=== PATIENT | male | born 1990 | race Caucasian/White ===

== ENCOUNTER 2017-02-01 19:44 | Inpatient (IN) | payer BC ==
[2017-02-01] MEDS ORDERED: Sodium Chloride 0.9% 1,000 ML IV SCH (20:45)
[2017-02-01] MEDS ORDERED: Sodium Chloride 0.9% 1,000 ML IV ONE ×2 (20:48→22:12)
--- NOTE | 2017-02-01 20:58 | PCM.HP ---
H&P History of Present Illness - General Date of Service: 02/01/17 Admit Problem/Dx: Sepsis with Hypotension and IVDU Source of Information: Patient, Provider, RN notes reviewed, Significant Other History Limitations: Reports: No limitations - History of Present Illness Initial Comments - Free Text/Narative: This is a 26 yo white male with past medical hx/o anxiety, depression, substance abuse who initially presented to [place] with complaints of abdominal pain associated with nausea, vomiting and headache. He also admits to having watery diarrhea that just started this am. Patient carries a hx/o chronic IVDU, today he and his girlfriend admit to injecting dilaudid from a cotton and saved it to use for a few days later. However he did not use a clean needle. According to him, he buys dilaudid pills from friends, either 2 or 4 mg for $10 each; crushed, saved it on a cotton ball and wet it later to get liquid out and then inject. He has been doing this for 2 years now. He usually injects at least 2 times a month. In [place], his initial work up shows a CBC remarkable for WBC of 2.9. His chemistry is significant for Cr 1.7, AST 249, and ALT 108. His initial vital signs were Temp 101.8, HR 170, RR 20, O2 sat 100 on RA, and BP 109/43 mmHg. Patient received one time dose of 1L NS bolus, Zofran 4mg IVP, Toradol 30 mg IVP , Zosyn 3.375 mg IV and Vancomycin 1 gram IV before he was transferred to [facility] for higher level of care. - Related Data Allergies/Adverse Reactions: Allergies Allergy/AdvReac Type Severity Reaction Status Date / Time No Known Allergies Allergy Verified 02/01/17 20:34 Past Medical History Psychiatric History: Reports: Addiction, Anxiety, Depression Social & Family History - Family History Family Medical History: Noncontributory - Tobacco Use Smoking Status *Q: Current Every Day Smoker Years of Tobacco use: 6 Packs/Tins Daily: 1 Used Tobacco, but Quit: No Second Hand Smoke Exposure: No - Caffeine Use Caffeine Use: Reports: Coffee, Energy drinks, Soda, Tea - Recreational Drug Use Recreational Drug Use: Yes Drug Use in Last 12 Months: Yes Recreational Drug Type: Reports: Other (see below) Other Recreational Drug Type: opiates Recreational Drug Use Frequency: Daily H&P Review of Systems - Review of Systems: Review Of Systems: See Below General: Reports: fever, malaise. Denies: chills, weakness, fatigue, decreased appetite HEENT: Reports: no symptoms, headaches Cardiovascular: Denies: chest pain, palpitations, dyspnea on exertion Gastrointestinal: Reports: Abdominal pain, Diarrhea, Nausea, Vomiting. Denies: Black stool, Bloody stool, Decreased appetite, Difficulty swallowing, Melena Genitourinary: Reports: no symptoms Musculoskeletal: Reports: neck pain, back pain, joint pain, muscle pain Skin: Denies: cyanosis, rash, erythema, lesions Psychiatric: Denies: confusion, depression, anxiety, agitation, cravings, hallucinations, suicidal ideation Neurological: Reports: Headache. Denies: Confusion, Dizziness, Numbness, Paresthesia, Seizure, Syncope, Tingling, Tremors, Trouble Speaking, Difficulty Walking, Weakness, Change in Speech, Gait Disturbance Hematologic/Lymphatic: Reports: no symptoms Immunologic: Reports: no symptoms Exam - Exam Exam: See Below - Vital Signs Weight: 73.21 kg - Exam General: alert, oriented, cooperative. No: mild distress HEENT: Conjunctiva clear, EACs clear, Hearing intact, Mucosa moist & pink, Nares patent, Normal nasal septum, Posterior pharynx clear, Pupils equal, Pupils reactive. No: EOMI Neck: supple, trachea midline, 2+ carotid pulse wo bruit, full range of motion Lungs: Clear to auscultation, Normal respiratory effort Cardiovascular: tachycardia. No: systolic murmur, diastolic murmur Abdomen: normal bowel sounds, soft, tenderness (mild). No: organomegaly, peritoneal signs, distention, guarding, rigidity, rebound (Male) Exam: Deferred Rectal (Males) Exam: Deferred Back Exam: normal inspection, full range of motion Extremities: normal inspection, normal pulses. No: clubbing, cyanosis, calf tenderness, edema Peripheral Pulses: 3+: posterior tibial (L), posterior tibial (R), dorsalis pedis (L), dorsalis pedis (R) Skin: warm, dry, intact, other (tattoos: chest, back of upper right arm, lateral aspect of lower leg and medial aspect of left foot). No: rash, petechia , ecchymosis, wound, incision Skin Alteration Location (drawings not to scale): 1 - one needle tract 2 - tattoo 3 - tattoo 4 - tattoo 5 - tattoo Neuro Extensive - Mental Status: oriented x3, normal cognition, memory intact Neuro Extensive - Motor, Sensory, Reflexes: CN II-XII intact, normal gait Psychiatric: alert, normal affect, normal mood. No: anxious, agitated, suicidal ideation, hallucinations, withdrawal symptoms - Patient Data Result Diagrams: 02/01/17 21:50 02/01/17 21:50 *Q Meaningful Use (ADM) - VTE *Q VTE Criteria *Q: - Stroke *Q Stroke Criteria *Q: - AMI *Q AMI Criteria *Q: Problem List Initiated/Reviewed/Updated: Yes Orders Last 24hrs: Active Orders 24 hr Category Date Time Status Regular Diet [DIET] Diet 02/01/17 Breakfast Active CULTURE MRSA SURVEY [RM] Routine Lab 02/01/17 20:40 Ordered Sodium Chloride 0.9% [Normal Saline] 1,000 ml Med 02/01/17 20:45 Active IV ASDIRECTED Sodium Chloride 0.9% [Normal Saline] 1,000 ml Med 02/01/17 20:48 Active IV ONETIME Medication Orders Sodium Chloride (Normal Saline) 1,000 mls @ 125 mls/hr IV ASDIRECTED EFRAÍN Sodium Chloride (Normal Saline) 1,000 mls @ 999 mls/hr IV ONETIME ONE Stop: 02/01/17 21:48 Assessment/Plan Comment:: Assessment/Plan: Acute: Sepsis with Profound Hypotension - Likely from infected needle with IVDU: fever, leukoctyosis, hypotension - Carries hx/o IDVU with heroin - WBC is now 11.75 and CRP is 2.8 - He was shooting up with his girlfriend today with "dilaudid" - Admits to re-using dirty needles - Received one dose of 1L NS, IV Vancomycin 1 gram and IV Zosyn 3.735 gram in Ron - LA now and LA in 3 hrs - Aggressive IV hydration at least 4L of NS , if no response will start a pressor - Will add Levaquin 750 mg IV Daily - Continue IV Vancomycin daily and IV Zosyn Q6 for pharmacy to renally dose Sinus Tachycardia - 2/2 profound hypotension - He is aggressive receiving intravenous fluids - Continue to monitor Lactic Acidosis - LA 4.7 - Continue aggressive hydration - Follow up level in 3 hrs IVDU with Dilaudid - Patient buys dilaudid pills either 2mg or 4 mg (for $10), crushed and soaked it on cotton balls to save it for later use and when ready to shoot, he then wet with water later to get liquid out via needle to inject - He admits a hx/o heroin IVD - He does this because he wants to "get high" - He does IVDU at least 2 times/month Acute on Chronic Substance Abuse - Hx/o Heroin IVDU - Hx/o Smoking Methamphetamine - Actively abusing dilaudid - Would help - Consult SAC Nausea and Vomiting - PRN anti-emesis - H2B BID Watery Diarrhea - Started today, has not had any episode - No recent travel outside the country - No unusual diet/drinks and no bad food - Last meal was a donut - Supportive care and continue to monitor Nicotine Dependence - Smokes 1ppd - Nicotine patch daily Chronic: Anxiety Depression Plan: Admit to ICU due to hemodynamic instability Sepsis protocol: UA, Blood Cx 2, LA, Inflammatory markers and Intravenous Antibiotics Monitor for withdrawal symptoms Supportive Care Aggressive Volume Resuscitative Measures SW/CM for d/c planning Additional orders as above
[2017-02-01] MEDS ORDERED: Acetaminophen 325 MG Tab PO PRN (21:50)
[2017-02-01] MEDS ORDERED: Docusate Sodium 100 MG Cap PO PRN (21:50)
[2017-02-01] MEDS ORDERED: Bisacodyl 5 MG Tab PO PRN (21:50)
[2017-02-01] MEDS ORDERED: Ondansetron 4 MG/2 ML SDV IV PRN (21:50)
[2017-02-01] MEDS ORDERED: Albuterol/Ipratropium 3.0-0.5 MG/3 ML Neb Soln NEB PRN (21:50)
[2017-02-01] MEDS ORDERED: Nicotine 21 MG/24 Hr Patch TRDERM ONE (21:58)
[2017-02-01] MEDS ORDERED: Levofloxacin/Dextrose 5%-Water 750 MG in Premix Bag 1 BAG IV SCH (22:00)
[2017-02-01] MEDS: Temazepam 15 MG Cap PO PRN (22:26)
[2017-02-01] MEDS ORDERED: Magnesium Sulfate/Water 2 GM in Premix Bag 1 BAG IV ONE (22:54)
[2017-02-01] MEDS ORDERED: hydrALAZINE 20 MG/ML SDV IVPUSH PRN (22:56)
[2017-02-01] MEDS ORDERED: Metoprolol Tartrate 5 MG/5 ML SDV IVPUSH PRN (22:56)
[2017-02-02] MEDS: Piperacillin/Tazobactam 4.5 GM in Sodium Chloride 0.9% 100 ML IV SCH ×5 (00:16→23:26)
[2017-02-02] MEDS ORDERED: Sodium Chloride 0.9% 1,000 ML IV ONE ×2 (01:00→01:04)
[2017-02-02] MEDS: LORazepam 2 MG/ML MDV IV PRN ×3 (01:09→18:11)
[2017-02-02] MEDS ORDERED: SUMAtriptan 50 MG Tab PO PRN (01:14)
[2017-02-02] MEDS: Meperidine PF 50 MG/ML Syringe IVPUSH PRN (02:31)
[2017-02-02] MEDS: Ibuprofen 600 MG Tab PO PRN (03:13)
[2017-02-02] MEDS: SUMAtriptan 50 MG Tab PO PRN ×2 (03:20→05:11)
[2017-02-02] MEDS ORDERED: Acetaminophen/Butalbital/Caffeine 325-50-40 MG Tab PO PRN (07:23)
[2017-02-02] MEDS ORDERED: diphenhydrAMINE 50 MG/ML SDV IVPUSH ONE ×3 (07:24→23:40)
[2017-02-02] MEDS: Famotidine 20 MG Tab PO SCH ×2 (08:11→20:32)
[2017-02-02] MEDS ORDERED: Enoxaparin 30 MG/0.3 ML Syringe SUBCUT SCH (09:00)
[2017-02-02] MEDS ORDERED: Vancomycin 1 GM, Vancomycin 500 MG in Sodium Chloride 0.9% 500 ML IV SCH (09:00)
[2017-02-02] MEDS: Sodium Chloride 0.9% 1,000 ML IV SCH ×4 (09:32→21:48)
[2017-02-02] MEDS ORDERED: Magnesium Sulfate/Water 2 GM in Premix Bag 1 BAG IV ONE (09:35)
[2017-02-02] MEDS ORDERED: Enoxaparin 30 MG/0.3 ML Syringe SUBCUT ONE (10:00)
[2017-02-02] MEDS: Saccharomyces Boulardii (Probiotic) 250 MG Cap PO SCH ×3 (10:13→20:33)
[2017-02-02] MEDS: Magnesium Sulfate/Water 2 GM in Premix Bag 1 BAG IV ONE ×2 (11:52→12:23)
[2017-02-02] MEDS ORDERED: QUEtiapine 25 MG Tab PO ONE (12:41)
[2017-02-02] MEDS ORDERED: Norepinephrine 4 MG in Dextrose 5% in Water 246 ML IV SCH ×2 (17:30)
--- NOTE | 2017-02-02 17:38 | PCM.PN ---
- General Info Date of Service: 02/02/17 Admission Dx/Problem (Free Text): Sepsis with Hypotension and IVDU Subjective Update: Follow Up Functional Status: Reports: pain controlled, tolerating diet, urinating, new symptoms (anxious) - Review of Systems General: Denies: Fever, Chills HEENT: Reports: no symptoms Pulmonary: Denies: shortness of breath Cardiovascular: Denies: Chest Pain, Palpitations, Dyspnea on Exertion Gastrointestinal: Denies: Abdominal pain, Constipation, Diarrhea, Nausea, Vomiting Genitourinary: Reports: no symptoms Musculoskeletal: Reports: no symptoms Skin: Denies: cyanosis, jaundice, mottled, pallor, diaphoresis, pruritis, rash Neurological: Denies: Confusion, Seizure, Syncope, Weakness Psychiatric: Reports: anxiety. Denies: confusion, depression, mood lability, cravings, hallucinations, suicidal ideation, homicidal ideation Systems Review Comment:: No overnight or acute issues. He looks stable. His BP is holding up real well. His WBC went up to 20K from 11K. He remains afebrile. - Patient Data Vitals - most recent: Last Vital Signs Temp 37.1 C 02/02/17 11:59 Pulse 110 H 02/02/17 17:17 Resp 22 H 02/02/17 17:17 BP 92/50 L 02/02/17 17:17 Pulse Ox 96 02/02/17 17:17 Weight - most recent: 73.21 kg I&O - last 24 hours: Intake & Output 02/02/17 02/02/17 02/02/17 06:59 14:59 22:59 Intake Total 7300 3130 Output Total 3450 2550 Balance 3850 580 Lab Results last 24 hrs: Laboratory Results - last 24 hr 02/01/17 02/01/17 02/01/17 Range/Units 21:50 21:50 21:50 WBC 11.75 H (4.23-9.07) K/mm3 RBC 4.47 L (4.63-6.08) M/mm3 Hgb 13.0 L (13.7-17.5) gm/L Hct 38.8 L (40.1-51.0) % MCV 86.8 (79.0-92.2) fl MCH 29.1 (25.7-32.2) pg MCHC 33.5 (32.2-35.5) g/dl RDW Std Deviation 39.5 (35.1-43.9) fL Plt Count 150 L (163-337) K/mm3 MPV 10.2 (9.4-12.3) fl Neut % (Auto) 96.8 H (34.0-67.9) % Lymph % (Auto) 1.4 L (21.8-53.1) % [place] % (Auto) 0.3 L (5.3-12.2) % Eos % (Auto) 0.2 L (0.8-7.0) Baso % (Auto) 0.2 (0.1-1.2) % Neut # (Auto) 11.39 H (1.78-5.38) K/mm3 Lymph # (Auto) 0.16 L (1.32-3.57) K/mm3 [place] # (Auto) 0.03 L (0.30-0.82) K/mm3 Eos # (Auto) 0.02 L (0.04-0.54) K/mm3 Baso # (Auto) 0.02 (0.01-0.08) K/mm3 Manual Slide Review Abnormal smear ESR 6 (0-15) mm/hr Sodium 139 (136-145) mEq/L Potassium 3.8 (3.5-5.1) mEq/L Chloride 104 (98-107) mEq/L Carbon Dioxide 23 (21-32) mEq/L Anion Gap 15.8 H (5-15) BUN 18 (7-18) mg/dL Creatinine 1.9 H (0.7-1.3) mg/dL Est Cr Clr Drug Dosing 61.54 mL/min Estimated GFR (MDRD) 43 (>60) mL/min BUN/Creatinine Ratio 9.5 L (14-18) Glucose 118 H (74-106) mg/dL Lactic Acid (0.4-2.0) mmol/L Calcium 7.9 L (8.5-10.1) mg/dL Magnesium 1.2 L (1.8-2.4) mg/dl C-Reactive Protein 2.8 H* (<1.0) mg/dL Urine Color (Yellow) Urine Appearance (Clear) Urine pH (5.0-8.0) Ur Specific [place] (1.005-1.030) Urine Protein (Negative) Urine Glucose (UA) (Negative) Urine Ketones (Negative) Urine Occult Blood (Negative) Urine Nitrite (Negative) Urine Bilirubin (Negative) Urine Urobilinogen (0.2-1.0) Ur Leukocyte Esterase (Negative) Urine RBC (0-5) /hpf Urine WBC (0-5) /hpf Ur Epithelial Cells (0-5) /hpf Amorphous Sediment (NOT SEEN) /hpf Urine Bacteria (FEW) /hpf Urine Mucus (FEW) /hpf Urine Opiates Screen (NEGATIVE) Ur Buprenorphine Scrn (NEGATIVE) Ur Oxycodone Screen (NEGATIVE) Urine Methadone Screen (NEGATIVE) Ur Propoxyphene Screen (NEGATIVE) Ur Barbiturates Screen (NEGATIVE) Ur Tricyclics Screen (NEGATIVE) Ur Phencyclidine Scrn (NEGATIVE) Ur Amphetamine Screen (NEGATIVE) U Methamphetamines Scrn (NEGATIVE) U Benzodiazepines Scrn (NEGATIVE) U Cocaine Metab Screen (NEGATIVE) U Marijuana (THC) Screen (NEGATIVE) MRSA (PCR) 02/01/17 02/01/17 02/01/17 Range/Units 21:50 23:00 23:00 WBC (4.23-9.07) K/mm3 RBC (4.63-6.08) M/mm3 Hgb (13.7-17.5) gm/L Hct (40.1-51.0) % MCV (79.0-92.2) fl MCH (25.7-32.2) pg MCHC (32.2-35.5) g/dl RDW Std Deviation (35.1-43.9) fL Plt Count (163-337) K/mm3 MPV (9.4-12.3) fl Neut % (Auto) (34.0-67.9) % Lymph % (Auto) (21.8-53.1) % [place] % (Auto) (5.3-12.2) % Eos % (Auto) (0.8-7.0) Baso % (Auto) (0.1-1.2) % Neut # (Auto) (1.78-5.38) K/mm3 Lymph # (Auto) (1.32-3.57) K/mm3 [place] # (Auto) (0.30-0.82) K/mm3 Eos # (Auto) (0.04-0.54) K/mm3 Baso # (Auto) (0.01-0.08) K/mm3 Manual Slide Review ESR (0-15) mm/hr Sodium (136-145) mEq/L Potassium (3.5-5.1) mEq/L Chloride (98-107) mEq/L Carbon Dioxide (21-32) mEq/L Anion Gap (5-15) BUN (7-18) mg/dL Creatinine (0.7-1.3) mg/dL Est Cr Clr Drug Dosing mL/min Estimated GFR (MDRD) (>60) mL/min BUN/Creatinine Ratio (14-18) Glucose (74-106) mg/dL Lactic Acid 4.7 H (0.4-2.0) mmol/L Calcium (8.5-10.1) mg/dL Magnesium (1.8-2.4) mg/dl C-Reactive Protein (<1.0) mg/dL Urine Color Yellow (Yellow) Urine Appearance Clear (Clear) Urine pH 5.5 (5.0-8.0) Ur Specific [place] 1.010 (1.005-1.030) Urine Protein 1+ H (Negative) Urine Glucose (UA) Negative (Negative) Urine Ketones Negative (Negative) Urine Occult Blood 2+ H (Negative) Urine Nitrite Negative (Negative) Urine Bilirubin Negative (Negative) Urine Urobilinogen 0.2 (0.2-1.0) Ur Leukocyte Esterase Negative (Negative) Urine RBC 20-30 H (0-5) /hpf Urine WBC 0-5 (0-5) /hpf Ur Epithelial Cells 0-5 (0-5) /hpf Amorphous Sediment Few H (NOT SEEN) /hpf Urine Bacteria Few (FEW) /hpf Urine Mucus Few (FEW) /hpf Urine Opiates Screen Presumptive positive H (NEGATIVE) Ur Buprenorphine Scrn Negative (NEGATIVE) Ur Oxycodone Screen Negative (NEGATIVE) Urine Methadone Screen Negative (NEGATIVE) Ur Propoxyphene Screen Negative (NEGATIVE) Ur Barbiturates Screen Negative (NEGATIVE) Ur Tricyclics Screen Presumptive positive H (NEGATIVE) Ur Phencyclidine Scrn Negative (NEGATIVE) Ur Amphetamine Screen Presumptive positive H (NEGATIVE) U Methamphetamines Scrn Negative (NEGATIVE) U Benzodiazepines Scrn Negative (NEGATIVE) U Cocaine Metab Screen Negative (NEGATIVE) U Marijuana (THC) Screen Presumptive positive H (NEGATIVE) MRSA (PCR) 02/02/17 02/02/17 02/02/17 Range/Units 01:00 04:21 04:21 WBC 20.34 H (4.23-9.07) K/mm3 RBC 4.34 L (4.63-6.08) M/mm3 Hgb 12.7 L (13.7-17.5) gm/L Hct 37.5 L (40.1-51.0) % MCV 86.4 (79.0-92.2) fl MCH 29.3 (25.7-32.2) pg MCHC 33.9 (32.2-35.5) g/dl RDW Std Deviation 39.9 (35.1-43.9) fL Plt Count 147 L (163-337) K/mm3 MPV 10.2 (9.4-12.3) fl Neut % (Auto) 94.5 H (34.0-67.9) % Lymph % (Auto) 1.2 L (21.8-53.1) % [place] % (Auto) 2.7 L (5.3-12.2) % Eos % (Auto) 0.1 L (0.8-7.0) Baso % (Auto) 0.1 (0.1-1.2) % Neut # (Auto) 19.21 H (1.78-5.38) K/mm3 Lymph # (Auto) 0.25 L (1.32-3.57) K/mm3 [place] # (Auto) 0.55 (0.30-0.82) K/mm3 Eos # (Auto) 0.02 L (0.04-0.54) K/mm3 Baso # (Auto) 0.02 (0.01-0.08) K/mm3 Manual Slide Review Abnormal smear ESR (0-15) mm/hr Sodium 144 (136-145) mEq/L Potassium 4.2 (3.5-5.1) mEq/L Chloride 109 H (98-107) mEq/L Carbon Dioxide 24 (21-32) mEq/L Anion Gap 15.2 H (5-15) BUN 20 H (7-18) mg/dL Creatinine 1.9 H (0.7-1.3) mg/dL Est Cr Clr Drug Dosing 61.54 mL/min Estimated GFR (MDRD) 43 (>60) mL/min BUN/Creatinine Ratio 10.5 L (14-18) Glucose 98 (74-106) mg/dL Lactic Acid 5.1 H (0.4-2.0) mmol/L Calcium 7.9 L (8.5-10.1) mg/dL Magnesium 1.5 L (1.8-2.4) mg/dl C-Reactive Protein 7.5 H* (<1.0) mg/dL Urine Color (Yellow) Urine Appearance (Clear) Urine pH (5.0-8.0) Ur Specific [place] (1.005-1.030) Urine Protein (Negative) Urine Glucose (UA) (Negative) Urine Ketones (Negative) Urine Occult Blood (Negative) Urine Nitrite (Negative) Urine Bilirubin (Negative) Urine Urobilinogen (0.2-1.0) Ur Leukocyte Esterase (Negative) Urine RBC (0-5) /hpf Urine WBC (0-5) /hpf Ur Epithelial Cells (0-5) /hpf Amorphous Sediment (NOT SEEN) /hpf Urine Bacteria (FEW) /hpf Urine Mucus (FEW) /hpf Urine Opiates Screen (NEGATIVE) Ur Buprenorphine Scrn (NEGATIVE) Ur Oxycodone Screen (NEGATIVE) Urine Methadone Screen (NEGATIVE) Ur Propoxyphene Screen (NEGATIVE) Ur Barbiturates Screen (NEGATIVE) Ur Tricyclics Screen (NEGATIVE) Ur Phencyclidine Scrn (NEGATIVE) Ur Amphetamine Screen (NEGATIVE) U Methamphetamines Scrn (NEGATIVE) U Benzodiazepines Scrn (NEGATIVE) U Cocaine Metab Screen (NEGATIVE) U Marijuana (THC) Screen (NEGATIVE) MRSA (PCR) 02/02/17 02/02/17 02/02/17 Range/Units 04:21 10:30 14:53 WBC (4.23-9.07) K/mm3 RBC (4.63-6.08) M/mm3 Hgb (13.7-17.5) gm/L Hct (40.1-51.0) % MCV (79.0-92.2) fl MCH (25.7-32.2) pg MCHC (32.2-35.5) g/dl RDW Std Deviation (35.1-43.9) fL Plt Count (163-337) K/mm3 MPV (9.4-12.3) fl Neut % (Auto) (34.0-67.9) % Lymph % (Auto) (21.8-53.1) % [place] % (Auto) (5.3-12.2) % Eos % (Auto) (0.8-7.0) Baso % (Auto) (0.1-1.2) % Neut # (Auto) (1.78-5.38) K/mm3 Lymph # (Auto) (1.32-3.57) K/mm3 [place] # (Auto) (0.30-0.82) K/mm3 Eos # (Auto) (0.04-0.54) K/mm3 Baso # (Auto) (0.01-0.08) K/mm3 Manual Slide Review ESR (0-15) mm/hr Sodium (136-145) mEq/L Potassium (3.5-5.1) mEq/L Chloride (98-107) mEq/L Carbon Dioxide (21-32) mEq/L Anion Gap (5-15) BUN (7-18) mg/dL Creatinine (0.7-1.3) mg/dL Est Cr Clr Drug Dosing mL/min Estimated GFR (MDRD) (>60) mL/min BUN/Creatinine Ratio (14-18) Glucose (74-106) mg/dL Lactic Acid 4.4 H 2.0 (0.4-2.0) mmol/L Calcium (8.5-10.1) mg/dL Magnesium (1.8-2.4) mg/dl C-Reactive Protein (<1.0) mg/dL Urine Color (Yellow) Urine Appearance (Clear) Urine pH (5.0-8.0) Ur Specific [place] (1.005-1.030) Urine Protein (Negative) Urine Glucose (UA) (Negative) Urine Ketones (Negative) Urine Occult Blood (Negative) Urine Nitrite (Negative) Urine Bilirubin (Negative) Urine Urobilinogen (0.2-1.0) Ur Leukocyte Esterase (Negative) Urine RBC (0-5) /hpf Urine WBC (0-5) /hpf Ur Epithelial Cells (0-5) /hpf Amorphous Sediment (NOT SEEN) /hpf Urine Bacteria (FEW) /hpf Urine Mucus (FEW) /hpf Urine Opiates Screen (NEGATIVE) Ur Buprenorphine Scrn (NEGATIVE) Ur Oxycodone Screen (NEGATIVE) Urine Methadone Screen (NEGATIVE) Ur Propoxyphene Screen (NEGATIVE) Ur Barbiturates Screen (NEGATIVE) Ur Tricyclics Screen (NEGATIVE) Ur Phencyclidine Scrn (NEGATIVE) Ur Amphetamine Screen (NEGATIVE) U Methamphetamines Scrn (NEGATIVE) U Benzodiazepines Scrn (NEGATIVE) U Cocaine Metab Screen (NEGATIVE) U Marijuana (THC) Screen (NEGATIVE) MRSA (PCR) Negative Med Orders - Current: Current Medications Acetaminophen (Tylenol) 650 mg PO Q4H PRN PRN Reason: Pain (Mild 1-3)/fever Acetaminophen/Butalbital/Caffeine (Fioricet 325-50-40 Mg) 1 tab PO Q4H PRN PRN Reason: Headache Last Admin: 02/02/17 16:36 Dose: 1 tab Albuterol/Ipratropium (Duoneb 3.0-0.5 Mg/3 Ml) 3 ml NEB Q4H PRN PRN Reason: Shortness Of Breath/wheezing Bisacodyl (Dulcolax) 5 mg PO DAILY PRN PRN Reason: Constipation Docusate Sodium (Colace) 100 mg PO BID PRN PRN Reason: Constipation Enoxaparin Sodium (Lovenox) 40 mg SUBCUT DAILY [facility] Famotidine (Pepcid) 20 mg PO BID [facility] Last Admin: 02/02/17 08:11 Dose: 20 mg Hydralazine HCl (Apresoline) 20 mg IVPUSH Q4H PRN PRN Reason: Hypertension Piperacillin Sod/Tazobactam (Sod 4.5 gm/ Sodium Chloride) 100 mls @ 33.333 mls/ hr IV Q6H [facility] Last Admin: 02/02/17 17:31 Dose: 33.333 mls/hr Vancomycin HCl 1 gm/ Sodium (Chloride) 250 mls @ 250 mls/hr IV Q12H [facility] Last Admin: 02/02/17 11:12 Dose: 250 mls/hr Sodium Chloride (Normal Saline) 1,000 mls @ 250 mls/hr IV ASDIRECTED [facility] Last Admin: 02/02/17 17:32 Dose: 125 mls/hr Norepinephrine Bitartrate 4 mg (/ Dextrose/Water) 250 mls @ 7.5 mls/hr IV TITRATE [facility]RA[facility]N; 2 MCG/MIN PRN Reason: Protocol Ibuprofen (Motrin) 600 mg PO Q6H PRN PRN Reason: Pain Last Admin: 02/02/17 03:13 Dose: 600 mg Lorazepam (Ativan) 1 mg IV Q6H PRN PRN Reason: Anxiety Last Admin: 02/02/17 12:10 Dose: 1 mg Magnesium Sulfate (Pharmacy To Dose - Magnesium Replacement) 1 dose .XX ASDIRECTED PRN PRN Reason: rx to dose Meperidine HCl (Demerol) 50 mg IVPUSH Q6H PRN PRN Reason: Pain Last Admin: 02/02/17 02:31 Dose: 50 mg Metoprolol Tartrate (Lopressor) 5 mg IVPUSH Q4H PRN PRN Reason: Tachycardia Last Admin: 02/02/17 03:12 Dose: 5 mg Nicotine (Habitrol) 21 mg TRDERM DAILY [facility] Ondansetron HCl (Zofran) 4 mg IV Q6H PRN PRN Reason: Nausea/Vomiting Potassium Chloride (Pharmacy To Dose - Potassium Replacement) 1 dose .XX ASDIRECTED PRN PRN Reason: rx to dose Quetiapine Fumarate (Seroquel) 25 mg PO BID [facility] Saccharomyces Boulardii (Florastor) 250 mg PO TID [facility] Last Admin: 02/02/17 16:07 Dose: 250 mg Senna/Docusate Sodium (Senna Plus) 1 tab PO BID PRN PRN Reason: Constipation Temazepam (Restoril) 30 mg PO BEDTIME PRN PRN Reason: Sleep Last Admin: 02/01/17 22:26 Dose: 30 mg Vancomycin HCl (Pharmacy To Dose - Vancomycin) 1 dose .XX ASDIRECTED PRN PRN Reason: rx to dose Discontinued Medications Diphenhydramine HCl (Benadryl) 50 mg IVPUSH ONETIME ONE Stop: 02/02/17 07:25 Last Admin: 02/02/17 08:10 Dose: 50 mg Enoxaparin Sodium (Lovenox) 30 mg SUBCUT DAILY [facility] Last Admin: 02/02/17 08:10 Dose: 30 mg Enoxaparin Sodium (Lovenox) 10 mg SUBCUT ONETIME ONE Stop: 02/02/17 10:01 Last Admin: 02/02/17 09:51 Dose: 10 mg Sodium Chloride (Normal Saline) 1,000 mls @ 125 mls/hr IV ASDIRECTED [facility] Last Admin: 02/02/17 02:32 Dose: 125 mls/hr Sodium Chloride (Normal Saline) 1,000 mls @ 999 mls/hr IV ONETIME ONE Stop: 02/01/17 21:48 Last Admin: 02/01/17 21:06 Dose: 999 mls/hr Levofloxacin/Dextrose 750 mg/ (Premix) 150 mls @ 100 mls/hr IV Q24H [facility] Last Admin: 02/01/17 22:27 Dose: 100 mls/hr Vancomycin HCl 1 gm/Vancomycin HCl 500 mg/ Sodium Chloride 500 mls @ 333 mls/ hr IV Q24H [facility] Sodium Chloride (Normal Saline) 1,000 mls @ 999 mls/hr IV ONETIME ONE Stop: 02/01/17 23:12 Last Admin: 02/01/17 22:28 Dose: 999 mls/hr Magnesium Sulfate 2 gm/ Premix 50 mls @ 25 mls/hr IV ONETIME ONE Stop: 02/02/17 00:53 Last Admin: 02/02/17 00:12 Dose: 25 mls/hr Sodium Chloride (Normal Saline) 1,000 mls @ 999 mls/hr IV ONETIME ONE Stop: 02/02/17 02:00 Last Admin: 02/02/17 00:00 Dose: 999 mls/hr Sodium Chloride (Normal Saline) 1,000 mls @ 999 mls/hr IV ONETIME ONE Stop: 02/02/17 02:04 Last Admin: 02/02/17 01:13 Dose: 999 mls/hr Magnesium Sulfate 2 gm/ Premix 50 mls @ 25 mls/hr IV ONETIME ONE Stop: 02/02/17 11:34 Last Admin: 02/02/17 10:14 Dose: 25 mls/hr Magnesium Sulfate 2 gm/ Premix 50 mls @ 25 mls/hr IV ONETIME ONE Stop: 02/02/17 13:59 Last Admin: 02/02/17 12:23 Dose: Not Given Nicotine (Habitrol) 21 mg TRDERM ONETIME ONE Stop: 02/01/17 21:59 Last Admin: 02/01/17 22:25 Dose: 21 mg Quetiapine Fumarate (Seroquel) 25 mg PO ONETIME ONE Stop: 02/02/17 12:42 Last Admin: 02/02/17 12:55 Dose: 25 mg Sumatriptan Succinate (Imitrex) 50 mg PO Q4HR PRN PRN Reason: Headache Last Admin: 02/02/17 01:20 Dose: 50 mg Sumatriptan Succinate (Imitrex) 50 mg PO Q2H PRN PRN Reason: Headache Last Admin: 02/02/17 05:11 Dose: 50 mg - Exam General: alert, oriented, cooperative, no acute distress HEENT: Pupils equal, Pupils reactive, EOMI, Mucous membr. moist/pink Neck: supple, trachea midline, no JVD, no thyromegaly Lungs: Clear to auscultation, Normal respiratory effort Cardiovascular: Tachycardia Abdomen: bowel sounds present, soft, no tenderness, no distension (Male) Exam: Deferred Back Exam: normal inspection, full range of motion Extremities: no edema, normal pulses, no tenderness/swelling, no clubbing, no cyanosis, no calf tenderness Peripheral Pulses: 3+: posterior tibial (L), posterior tibial (R), dorsalis pedis (L), dorsalis pedis (R) Skin: warm, dry, intact Neurological: no new focal deficit Psy/Mental Status: alert, normal affect, anxious. No: suicidal ideation, homicidal ideation, hallucinations - Problem List Review Problem List Initiated/Reviewed/Updated: Yes - My Orders Last 24 Hours: My Active Orders 02/01/17 21:30 Blood Culture x2 Reflex Set [OM.PC] Stat 02/01/17 21:50 Patient Status [ADT] Routine Height and Weight [RC] 04 Up ad [place] [RC] ASDIRECTED VTE/DVT Education [RC] PER UNIT ROUTINE Vital Signs [RC] Q4HR CULTURE BLOOD [BC] Stat Acetaminophen [Tylenol] 650 mg PO Q4H PRN Albuterol/Ipratropium [DuoNeb 3.0-0.5 MG/3 ML] 3 ml NEB Q4H PRN Bisacodyl [Dulcolax] 5 mg PO DAILY PRN Docusate Sodium [Colace] 100 mg PO BID PRN Docusate Sodium/Sennosides [Senna Plus] 1 tab PO BID PRN LORazepam [Ativan] 1 mg IV Q6H PRN Ondansetron [Zofran] 4 mg IV Q6H PRN Temazepam [Restoril] 30 mg PO BEDTIME PRN Resuscitation Status Routine 02/01/17 21:51 Cardiac Monitoring [RC] CONTINUOUS Intake and Output [RC] 06,14,22 02/01/17 21:52 RT Aerosol Therapy [RC] ASDIRECTED 02/01/17 21:53 Consult to Case Management [CONS] Routine Consult to User Support Analyst [CONS] Routine Consult to Spiritual Care [CONS] Routine 02/01/17 22:00 Magnesium Rep Pharmacy to Dose [Pharmacy to Dose - Magnesium Replacement] 1 dose .XX ASDIRECTED PRN Potassium Rep Pharmacy to Dose [Pharmacy to Dose - Potassium Replacement] 1 dose .XX ASDIRECTED PRN Vancomycin Pharmacy to Dose [Pharmacy to Dose - Vancomycin] 1 dose .XX ASDIRECTED PRN 02/01/17 22:03 Consult for Substance Abuse [CONS] Routine CULTURE BLOOD [BC] Stat 02/01/17 22:56 Metoprolol Tartrate [Lopressor] 5 mg IVPUSH Q4H PRN hydrALAZINE [Apresoline] 20 mg IVPUSH Q4H PRN 02/01/17 23:00 CULTURE URINE [RM] Routine Meperidine [Demerol] 50 mg IVPUSH Q6H PRN Vancomycin [Vancocin] 1 gm Sodium Chloride 0.9% [Normal Saline] 250 ml IV Q12H 02/01/17 23:59 Piperacillin/Tazobactam [Zosyn] 4.5 gm Sodium Chloride 0.9% [Normal Saline] 100 ml IV Q6H 02/02/17 02:27 Ibuprofen [Motrin] 600 mg PO Q6H PRN 02/02/17 07:23 Acetaminophen/Butalbital/Caff [Fioricet 325-50-40 MG] 1 tab PO Q4H PRN 02/02/17 08:00 Sodium Chloride 0.9% [Normal Saline] 1,000 ml IV ASDIRECTED 02/02/17 09:00 Famotidine [Pepcid] 20 mg PO BID Saccharomyces Boulardii [Florastor] 250 mg PO TID 02/02/17 09:03 AMPHET/METH EXT CONF (GCMS) Routine CARBOXY-THC BY GC/MS Routine OPIATES 9 DRUG CONF LC-MS/MS Routine 02/02/17 17:30 Norepinephrine [Levophed] 4 mg Dextrose 5% in Water 246 ml IV TITRATE 02/02/17 21:00 Nicotine [Habitrol] 21 mg TRDERM DAILY QUEtiapine [SEROquel] 25 mg PO BID 02/03/17 05:11 BASIC METABOLIC PANEL,BMP [CHEM] AM C-REACTIVE PROTEIN [CHEM] AM CBC WITH AUTO DIFF [HEME] AM MAGNESIUM [CHEM] AM 02/03/17 09:00 Enoxaparin [Lovenox] 40 mg SUBCUT DAILY 02/04/17 05:11 BASIC METABOLIC PANEL,BMP [CHEM] AM C-REACTIVE PROTEIN [CHEM] AM CBC WITH AUTO DIFF [HEME] AM MAGNESIUM [CHEM] AM 02/05/17 05:11 BASIC METABOLIC PANEL,BMP [CHEM] AM C-REACTIVE PROTEIN [CHEM] AM CBC WITH AUTO DIFF [HEME] AM MAGNESIUM [CHEM] AM 02/06/17 05:11 BASIC METABOLIC PANEL,BMP [CHEM] AM C-REACTIVE PROTEIN [CHEM] AM CBC WITH AUTO DIFF [HEME] AM MAGNESIUM [CHEM] AM 02/07/17 05:11 BASIC METABOLIC PANEL,BMP [CHEM] AM C-REACTIVE PROTEIN [CHEM] AM CBC WITH AUTO DIFF [HEME] AM MAGNESIUM [CHEM] AM - Plan Plan:: Assessment/Plan: Acute: Sepsis with Profound Hypotension - Likely from infected needle with IVDU: fever, leukoctyosis, hypotension - Carries hx/o IDVU with heroin - WBC is now 20.34 (11.75) and CRP is 7.5 (2.8) - He was shooting up with his girlfriend today with "dilaudid" - Admits to re-using dirty needles - Received one dose of 1L NS, IV Vancomycin 1 gram and IV Zosyn 3.735 gram in [place] - LA now is 4.4, repeat level later - Continue aggressive IV hydration, increase rate to 250 cc/hr - D/c Levaquin 750 mg IV Daily - Continue IV Vancomycin daily and IV Zosyn Q6 for pharmacy to renally dose Mild Sinus Tachycardia - 2/2 profound hypotension and Sepsis - Continue aggressive hydration - Continue to monitor Lactic Acidosis - LA 4.7 ---> 4.4 - Continue aggressive hydration - Follow up level in the afternoon IVDU with Dilaudid - Patient buys dilaudid pills either 2mg or 4 mg (for $10), crushed and soaked it on cotton balls to save it for later use and when ready to shoot, he then wet with water later to get liquid out via needle to inject - He admits a hx/o heroin IVD - He does this because he wants to "get high" - He does IVDU at least 2 times/month Acute on Chronic Substance Abuse - Hx/o Heroin IVDU - Hx/o Smoking Methamphetamine - Actively abusing dilaudid - Would like some help to get better - He attended chemical rehab in the past in [place]" per mother - Consult SAC Nicotine Dependence - Smokes 1ppd - Nicotine patch daily Anxiety and Depression - He was asking more Ativan - Carries a significant hx/o Anxiety and Depression according to his mother - Will consult Dr. Hernandez Resolved: S/p Nausea and Vomiting - PRN anti-emesis - H2B BID S/p Watery Diarrhea - Started today, has not had any episode - No recent travel outside the country - No unusual diet/drinks and no bad food - Last meal was a donut - Supportive care and continue to monitor Plan: Continue to monitor for hemodynamic instability UA-negative and Blood Cx 2-pending Monitor for withdrawal symptoms Supportive Care Aggressive Volume Resuscitative Measures SW/CM for d/c planning SAC/Tele-Psych Consult Additional orders as above Spoke to his 3 siblings earlier today. Also with his mother later today, provided her with pertinent information with patient's permission.
--- NOTE | 2017-02-02 17:38 | PCM.SN ---
- Free Text/Narrative Note: Patient's pressure dropped lower requiring pressor support. Will start levophed titrate to keep MAP at or higher than 65. Met with her siblings today near bedside.
[2017-02-02] MEDS: QUEtiapine 25 MG Tab PO SCH (20:32)
[2017-02-02] MEDS: Temazepam 15 MG Cap PO PRN (20:37)
[2017-02-02] MEDS: Nicotine 21 MG/24 Hr Patch TRDERM SCH (20:39)
[2017-02-02] MEDS ORDERED: QUEtiapine 25 MG Tab PO SCH (21:00)
[2017-02-02] MEDS: LORazepam 2 MG/ML MDV IVPUSH PRN (22:48)
[2017-02-03] MEDS: Piperacillin/Tazobactam 4.5 GM in Sodium Chloride 0.9% 100 ML IV SCH ×3 (05:25→18:01)
[2017-02-03] MEDS: Sodium Chloride 0.9% 1,000 ML IV SCH ×3 (05:39→21:01)
[2017-02-03] MEDS: Enoxaparin 40 MG/0.4 ML Syringe SUBCUT SCH (08:55)
[2017-02-03] MEDS: Famotidine 20 MG Tab PO SCH ×2 (08:55→21:02)
[2017-02-03] MEDS: QUEtiapine 25 MG Tab PO SCH ×2 (08:55→21:03)
[2017-02-03] MEDS: Nicotine 21 MG/24 Hr Patch TRDERM SCH (08:56)
[2017-02-03] MEDS: Saccharomyces Boulardii (Probiotic) 250 MG Cap PO SCH ×2 (08:56→21:02)
[2017-02-03] MEDS: Meperidine PF 50 MG/ML Syringe IVPUSH PRN (09:08)
[2017-02-03] MEDS: LORazepam 2 MG/ML MDV IVPUSH PRN (09:10)
--- NOTE | 2017-02-03 09:31 | PCM.PN ---
- General Info Date of Service: 02/03/17 Admission Dx/Problem (Free Text): Sepsis with Hypotension and IVDU Subjective Update: Follow Up Functional Status: Reports: pain controlled, tolerating diet, ambulating, urinating. Denies: new symptoms - Review of Systems General: Denies: Fever, Weakness, Fatigue, Malaise, Chills HEENT: Reports: no symptoms Pulmonary: Denies: shortness of breath, pleuritic chest pain, cough, sputum Cardiovascular: Denies: Chest Pain, Palpitations, Dyspnea on Exertion Gastrointestinal: Denies: Abdominal pain, Nausea, Vomiting Genitourinary: Reports: no symptoms Musculoskeletal: Reports: no symptoms Skin: Denies: cyanosis, mottled, pallor, diaphoresis, rash Neurological: Denies: Confusion, Dizziness, Headache, Seizure, Syncope, Difficulty Walking, Weakness Psychiatric: Reports: anxiety. Denies: confusion, depression, agitation, cravings, hallucinations, suicidal ideation, homicidal ideation Systems Review Comment:: No overnight or acute issues. He fells much better with Seroquel. He has no acute issues. He remains afebrile but with increased WBC to 30K. CRP is up as well from 7.5 to 11. - Patient Data Vitals - most recent: Last Vital Signs Temp 36.7 C 02/03/17 04:00 Pulse 103 H 02/02/17 22:00 Resp 24 H 02/03/17 04:00 BP 122/66 02/03/17 04:00 Pulse Ox 96 02/03/17 04:00 Weight - most recent: 74.298 kg I&O - last 24 hours: Intake & Output 02/02/17 02/03/17 02/03/17 22:59 06:59 14:59 Intake Total 200 3752 Output Total 1700 Balance 200 2052 Lab Results last 24 hrs: Laboratory Results - last 24 hr 02/02/17 02/02/17 02/03/17 Range/Units 10:30 14:53 05:25 WBC 30.03 H (4.23-9.07) K/mm3 RBC 4.21 L (4.63-6.08) M/mm3 Hgb 12.5 L (13.7-17.5) gm/L Hct 36.3 L (40.1-51.0) % MCV 86.2 (79.0-92.2) fl MCH 29.7 (25.7-32.2) pg MCHC 34.4 (32.2-35.5) g/dl RDW Std Deviation 41.3 (35.1-43.9) fL Plt Count 144 L (163-337) K/mm3 MPV 11.2 (9.4-12.3) fl Neut % (Auto) 79.1 H (34.0-67.9) % Lymph % (Auto) 7.7 L (21.8-53.1) % Redwood % (Auto) 5.2 L (5.3-12.2) % Eos % (Auto) 0.2 L (0.8-7.0) Baso % (Auto) 0.2 (0.1-1.2) % Neut # (Auto) 23.76 H (1.78-5.38) K/mm3 Lymph # (Auto) 2.31 (1.32-3.57) K/mm3 Redwood # (Auto) 1.57 H (0.30-0.82) K/mm3 Eos # (Auto) 0.06 (0.04-0.54) K/mm3 Baso # (Auto) 0.06 (0.01-0.08) K/mm3 Manual Slide Review Abnormal smear Sodium (136-145) mEq/L Potassium (3.5-5.1) mEq/L Chloride (98-107) mEq/L Carbon Dioxide (21-32) mEq/L Anion Gap (5-15) BUN (7-18) mg/dL Creatinine (0.7-1.3) mg/dL Est Cr Clr Drug Dosing mL/min Estimated GFR (MDRD) (>60) mL/min BUN/Creatinine Ratio (14-18) Glucose (74-106) mg/dL Lactic Acid 2.0 (0.4-2.0) mmol/L Calcium (8.5-10.1) mg/dL Magnesium (1.8-2.4) mg/dl C-Reactive Protein (<1.0) mg/dL MRSA (PCR) Negative 02/03/17 Range/Units 05:25 WBC (4.23-9.07) K/mm3 RBC (4.63-6.08) M/mm3 Hgb (13.7-17.5) gm/L Hct (40.1-51.0) % MCV (79.0-92.2) fl MCH (25.7-32.2) pg MCHC (32.2-35.5) g/dl RDW Std Deviation (35.1-43.9) fL Plt Count (163-337) K/mm3 MPV (9.4-12.3) fl Neut % (Auto) (34.0-67.9) % Lymph % (Auto) (21.8-53.1) % Redwood % (Auto) (5.3-12.2) % Eos % (Auto) (0.8-7.0) Baso % (Auto) (0.1-1.2) % Neut # (Auto) (1.78-5.38) K/mm3 Lymph # (Auto) (1.32-3.57) K/mm3 Redwood # (Auto) (0.30-0.82) K/mm3 Eos # (Auto) (0.04-0.54) K/mm3 Baso # (Auto) (0.01-0.08) K/mm3 Manual Slide Review Sodium 146 H (136-145) mEq/L Potassium 3.7 (3.5-5.1) mEq/L Chloride 116 H (98-107) mEq/L Carbon Dioxide 21 (21-32) mEq/L Anion Gap 12.7 (5-15) BUN 14 (7-18) mg/dL Creatinine 1.3 (0.7-1.3) mg/dL Est Cr Clr Drug Dosing 89.95 mL/min Estimated GFR (MDRD) > 60 (>60) mL/min BUN/Creatinine Ratio 10.8 L (14-18) Glucose 79 (74-106) mg/dL Lactic Acid (0.4-2.0) mmol/L Calcium 8.5 (8.5-10.1) mg/dL Magnesium 2.2 (1.8-2.4) mg/dl C-Reactive Protein 11.0 H* (<1.0) mg/dL MRSA (PCR) Kashif Results last 24 hrs: Microbiology 02/01/17 23:00 Urine Culture - Preliminary Urine, Clean Catch NO GROWTH AFTER 1 DAY 02/01/17 22:03 Aerobic Blood Culture - Preliminary Blood - Venous - Lab Draw NO GROWTH AFTER 1 DAY Anaerobic Blood Culture - Preliminary NO GROWTH AFTER 1 DAY 02/01/17 21:50 Aerobic Blood Culture - Preliminary Blood - Venous NO GROWTH AFTER 1 DAY Anaerobic Blood Culture - Preliminary NO GROWTH AFTER 1 DAY Med Orders - Current: Current Medications Acetaminophen (Tylenol) 650 mg PO Q4H PRN PRN Reason: Pain (Mild 1-3)/fever Last Admin: 02/02/17 20:33 Dose: 650 mg Acetaminophen/Butalbital/Caffeine (Fioricet 325-50-40 Mg) 1 tab PO Q4H PRN PRN Reason: Headache Last Admin: 02/02/17 16:36 Dose: 1 tab Albuterol/Ipratropium (Duoneb 3.0-0.5 Mg/3 Ml) 3 ml NEB Q4H PRN PRN Reason: Shortness Of Breath/wheezing Bisacodyl (Dulcolax) 5 mg PO DAILY PRN PRN Reason: Constipation Docusate Sodium (Colace) 100 mg PO BID PRN PRN Reason: Constipation Enoxaparin Sodium (Lovenox) 40 mg SUBCUT DAILY [facility] Last Admin: 02/03/17 08:55 Dose: 40 mg Famotidine (Pepcid) 20 mg PO BID [facility] Last Admin: 02/03/17 08:55 Dose: 20 mg Hydralazine HCl (Apresoline) 20 mg IVPUSH Q4H PRN PRN Reason: Hypertension Piperacillin Sod/Tazobactam (Sod 4.5 gm/ Sodium Chloride) 100 mls @ 33.333 mls/ hr IV Q6H EFRAÍN Last Admin: 02/03/17 05:25 Dose: 33.333 mls/hr Vancomycin HCl 1 gm/ Sodium (Chloride) 250 mls @ 250 mls/hr IV Q12H [facility] Last Admin: 02/02/17 22:03 Dose: 250 mls/hr Norepinephrine Bitartrate 4 mg (/ Dextrose/Water) 250 mls @ 7.5 mls/hr IV TITRATE EFRAÍN; 2 MCG/MIN PRN Reason: Protocol Last Titration: 02/02/17 19:30 Dose: 0 mcg/min, 0 mls/hr Sodium Chloride (Normal Saline) 1,000 mls @ 125 mls/hr IV ASDIRECTED [facility] Last Admin: 02/03/17 05:39 Dose: 125 mls/hr Ibuprofen (Motrin) 600 mg PO Q6H PRN PRN Reason: Pain Last Admin: 02/02/17 03:13 Dose: 600 mg Lorazepam (Ativan) 1 mg IVPUSH Q4H PRN PRN Reason: Anxiety Last Admin: 02/03/17 09:10 Dose: 1 mg Magnesium Sulfate (Pharmacy To Dose - Magnesium Replacement) 1 dose .XX ASDIRECTED PRN PRN Reason: rx to dose Meperidine HCl (Demerol) 50 mg IVPUSH Q6H PRN PRN Reason: Pain Last Admin: 02/03/17 09:08 Dose: 50 mg Metoprolol Tartrate (Lopressor) 5 mg IVPUSH Q4H PRN PRN Reason: Tachycardia Last Admin: 02/02/17 03:12 Dose: 5 mg Nicotine (Habitrol) 21 mg TRDERM DAILY [facility] Last Admin: 02/03/17 08:56 Dose: 21 mg Ondansetron HCl (Zofran) 4 mg IV Q6H PRN PRN Reason: Nausea/Vomiting Potassium Chloride (Pharmacy To Dose - Potassium Replacement) 1 dose .XX ASDIRECTED PRN PRN Reason: rx to dose Quetiapine Fumarate (Seroquel) 50 mg PO BID [facility] Last Admin: 02/03/17 08:55 Dose: 50 mg Saccharomyces Boulardii (Florastor) 250 mg PO TID [facility] Last Admin: 02/03/17 08:56 Dose: 250 mg Senna/Docusate Sodium (Senna Plus) 1 tab PO BID PRN PRN Reason: Constipation Temazepam (Restoril) 30 mg PO BEDTIME PRN PRN Reason: Sleep Last Admin: 02/02/17 20:37 Dose: 30 mg Vancomycin HCl (Pharmacy To Dose - Vancomycin) 1 dose .XX ASDIRECTED PRN PRN Reason: rx to dose Discontinued Medications Diphenhydramine HCl (Benadryl) 50 mg IVPUSH ONETIME ONE Stop: 02/02/17 07:25 Last Admin: 02/02/17 08:10 Dose: 50 mg Diphenhydramine HCl (Benadryl) 50 mg IVPUSH ONETIME ONE Stop: 02/02/17 21:57 Last Admin: 02/02/17 22:03 Dose: 50 mg Diphenhydramine HCl (Benadryl) 50 mg IVPUSH ONETIME ONE Stop: 02/02/17 23:41 Last Admin: 02/02/17 23:54 Dose: 50 mg Enoxaparin Sodium (Lovenox) 30 mg SUBCUT DAILY [facility] Last Admin: 02/02/17 08:10 Dose: 30 mg Enoxaparin Sodium (Lovenox) 10 mg SUBCUT ONETIME ONE Stop: 02/02/17 10:01 Last Admin: 02/02/17 09:51 Dose: 10 mg Sodium Chloride (Normal Saline) 1,000 mls @ 125 mls/hr IV ASDIRECTED [facility] Last Admin: 02/02/17 02:32 Dose: 125 mls/hr Sodium Chloride (Normal Saline) 1,000 mls @ 999 mls/hr IV ONETIME ONE Stop: 02/01/17 21:48 Last Admin: 02/01/17 21:06 Dose: 999 mls/hr Levofloxacin/Dextrose 750 mg/ (Premix) 150 mls @ 100 mls/hr IV Q24H [facility] Last Admin: 02/01/17 22:27 Dose: 100 mls/hr Vancomycin HCl 1 gm/Vancomycin HCl 500 mg/ Sodium Chloride 500 mls @ 333 mls/ hr IV Q24H [facility] Sodium Chloride (Normal Saline) 1,000 mls @ 999 mls/hr IV ONETIME ONE Stop: 02/01/17 23:12 Last Admin: 02/01/17 22:28 Dose: 999 mls/hr Magnesium Sulfate 2 gm/ Premix 50 mls @ 25 mls/hr IV ONETIME ONE Stop: 02/02/17 00:53 Last Admin: 02/02/17 00:12 Dose: 25 mls/hr Sodium Chloride (Normal Saline) 1,000 mls @ 999 mls/hr IV ONETIME ONE Stop: 02/02/17 02:00 Last Admin: 02/02/17 00:00 Dose: 999 mls/hr Sodium Chloride (Normal Saline) 1,000 mls @ 999 mls/hr IV ONETIME ONE Stop: 02/02/17 02:04 Last Admin: 02/02/17 01:13 Dose: 999 mls/hr Sodium Chloride (Normal Saline) 1,000 mls @ 250 mls/hr IV ASDIRECTED [facility] Last Admin: 02/02/17 21:48 Dose: 125 mls/hr Magnesium Sulfate 2 gm/ Premix 50 mls @ 25 mls/hr IV ONETIME ONE Stop: 02/02/17 11:34 Last Admin: 02/02/17 10:14 Dose: 25 mls/hr Magnesium Sulfate 2 gm/ Premix 50 mls @ 25 mls/hr IV ONETIME ONE Stop: 02/02/17 13:59 Last Admin: 02/02/17 12:23 Dose: Not Given Lorazepam (Ativan) 1 mg IV Q6H PRN PRN Reason: Anxiety Last Admin: 02/02/17 18:11 Dose: 1 mg Nicotine (Habitrol) 21 mg TRDERM ONETIME ONE Stop: 02/01/17 21:59 Last Admin: 02/01/17 22:25 Dose: 21 mg Quetiapine Fumarate (Seroquel) 25 mg PO ONETIME ONE Stop: 02/02/17 12:42 Last Admin: 02/02/17 12:55 Dose: 25 mg Quetiapine Fumarate (Seroquel) 25 mg PO BID EFRA[facility]N Sumatriptan Succinate (Imitrex) 50 mg PO Q4HR PRN PRN Reason: Headache Last Admin: 02/02/17 01:20 Dose: 50 mg Sumatriptan Succinate (Imitrex) 50 mg PO Q2H PRN PRN Reason: Headache Last Admin: 02/02/17 05:11 Dose: 50 mg - Exam General: alert, oriented, cooperative, no acute distress HEENT: Pupils equal, Pupils reactive, EOMI, Mucous membr. moist/pink Neck: supple, trachea midline, no JVD, no thyromegaly Lungs: Clear to auscultation, Normal respiratory effort Cardiovascular: Regular Rate, Regular Rhythm, No Murmurs Abdomen: bowel sounds present, soft, no tenderness, no distension (Male) Exam: Deferred Back Exam: normal inspection, decreased range of motion Extremities: no edema, normal pulses, no tenderness/swelling, no clubbing, no cyanosis, no calf tenderness Peripheral Pulses: 3+: posterior tibial (L), posterior tibial (R), dorsalis pedis (L), dorsalis pedis (R) Skin: warm, dry, intact. No: rash, ecchymosis Neurological: no new focal deficit Psy/Mental Status: alert, normal affect, normal mood, withdrawal symptoms. No: suicidal ideation, hallucinations - Problem List Review Problem List Initiated/Reviewed/Updated: Yes - My Orders Last 24 Hours: My Active Orders 02/02/17 09:00 Famotidine [Pepcid] 20 mg PO BID Saccharomyces Boulardii [Florastor] 250 mg PO TID 02/02/17 09:03 AMPHET/METH EXT CONF (GCMS) Routine CARBOXY-THC BY GC/MS Routine OPIATES 9 DRUG CONF LC-MS/MS Routine 02/02/17 17:30 Norepinephrine [Levophed] 4 mg Dextrose 5% in Water 246 ml IV TITRATE 02/02/17 19:48 Consult to Physician [CONS] Routine 02/02/17 19:49 Notify Provider Consults [RC] ASDIRECTED 02/02/17 21:00 Nicotine [Habitrol] 21 mg TRDERM DAILY QUEtiapine [SEROquel] 50 mg PO BID 02/02/17 22:32 LORazepam [Ativan] 1 mg IVPUSH Q4H PRN 02/03/17 05:30 Sodium Chloride 0.9% [Normal Saline] 1,000 ml IV ASDIRECTED 02/03/17 09:00 Enoxaparin [Lovenox] 40 mg SUBCUT DAILY 02/04/17 05:11 BASIC METABOLIC PANEL,BMP [CHEM] AM C-REACTIVE PROTEIN [CHEM] AM CBC WITH AUTO DIFF [HEME] AM MAGNESIUM [CHEM] AM 02/05/17 05:11 BASIC METABOLIC PANEL,BMP [CHEM] AM C-REACTIVE PROTEIN [CHEM] AM CBC WITH AUTO DIFF [HEME] AM MAGNESIUM [CHEM] AM 02/06/17 05:11 BASIC METABOLIC PANEL,BMP [CHEM] AM C-REACTIVE PROTEIN [CHEM] AM CBC WITH AUTO DIFF [HEME] AM MAGNESIUM [CHEM] AM 02/07/17 05:11 BASIC METABOLIC PANEL,BMP [CHEM] AM C-REACTIVE PROTEIN [CHEM] AM CBC WITH AUTO DIFF [HEME] AM MAGNESIUM [CHEM] AM - Plan Plan:: Assessment/Plan: Acute: Sepsis Status Post Profound Hypotension - Likely from infected needle with IVDU: fever, leukoctyosis, hypotension - Carries hx/o IDVU with heroin - WBC is now 30 from 20.34 and CRP is now 11 from 7.5 - He was shooting up with his girlfriend today with "dilaudid" - Admits to re-using dirty needles - Received one dose of 1L NS, IV Vancomycin 1 gram and IV Zosyn 3.735 gram in [place] - [place] now is 4.4, repeat level is 2 - Continue aggressive IV hydration - He is now off pressor - Continue IV Vancomycin daily and IV Zosyn Q6 for pharmacy to renally dose - Awaiting blood culture report from [place], [place] IVDU with Dilaudid - Patient buys dilaudid pills either 2mg or 4 mg (for $10), crushed and soaked it on cotton balls to save it for later use and when ready to shoot, he then wet with water later to get liquid out via needle to inject - He admits a hx/o heroin IVD - He does this because he wants to "get high" - He does IVDU at least 2 times/month Acute on Chronic Substance Abuse - Hx/o Heroin IVDU - Hx/o Smoking Methamphetamine - Actively abusing dilaudid - Would like some help to get better - He attended chemical rehab in the past in [place]" per mother - Awaiting SAC eval Nicotine Dependence - Smokes 1ppd - Nicotine patch daily Anxiety and Depression - Adjusted Ativan frequency - Carries a significant hx/o Anxiety and Depression according to his mother - Awaiting Psych eval Resolved: S/p Nausea and Vomiting - PRN anti-emesis - H2B BID S/p Watery Diarrhea - Started today, has not had any episode - No recent travel outside the country - No unusual diet/drinks and no bad food - Last meal was a donut - Supportive care and continue to monitor S/p Mild Sinus Tachycardia - 2/2 profound hypotension and Sepsis - Continue aggressive hydration - Continue to monitor S/p Lactic Acidosis - LA 4.7 ---> 4.4 - Continue aggressive hydration - Follow up level in the afternoon S/p Hypotension Plan: He is now clinically stable PRN Meds for withdrawal symptoms Supportive Care Cut down on Volume Resuscitative Measures SW/CM for d/c planning Awaiting SAC/Tele-Psych eval Additional orders as above
[2017-02-03] MEDS ORDERED: Ketorolac 30 MG/ML SDV IVPUSH PRN (10:30)
--- NOTE | 2017-02-03 13:59 | PCM.SN ---
- Free Text/Narrative Note: Patient also started getting bradycardic but asymptomatic. Will check for EKG.
[2017-02-03] MEDS: Ibuprofen 600 MG Tab PO PRN (18:05)
[2017-02-03] MEDS: LORazepam 1 MG Tab PO PRN (18:06)
--- NOTE | 2017-02-03 18:16 | CONS ---
CONSULTING PHYSICIAN: Ethan Long LAC DATE OF CONSULTATION: 02/03/2017 TIME SEEN: 1737 hours. REASON FOR CONSULTATION: The patient is a 26-year-old male, who was admitted to [facility] on 02/01/2017 with sepsis, sinus tachycardia, lactic acidosis secondary to chronic IV drug use and injecting with dirty needles. An alcohol and drug consultation was requested by his Medical Treatment Team. SOURCE OF INFORMATION: Hospital records, background search, prescription drug monitoring report. HISTORY OF PRESENT ILLNESS: Attempted an alcohol and drug evaluation with the patient at approximately 1500 hours on 02/03/2017. I asked the patient if he would be willing to speak with me for an alcohol and drug evaluation and informed him of all possible out comes from the evaluation such as a referral for continuing treatment up to an involuntary commitment. The patient wanted to have time to think about whether or not he wanted to participate in the evaluation and we agreed, I would come back within half hour I attempted the alcohol and drug evaluation with the patient a half hour later at approximately 1530 hours. The patient verbalized at that time, he was not amenable to participate in alcohol and drug evaluation and refused any professional assistance or intervention the hospital was offering. The patient's autonomy was respected and the conversation was concluded. I texted Dr. Roach with the outcome of this evaluation that the patient was not amenable to follow through. I spoke with DILLON Griffith, regarding the attempted alcohol and drug evaluation. DILLON Griffith, will offer the patient referral information for area treatment centers, should the patient be wanting to pursue treatment at a later date. ALDEN /[id number]
[2017-02-03] MEDS: Temazepam 30 MG Cap PO PRN (21:04)
[2017-02-03] MEDS: Levofloxacin/Dextrose 5%-Water 750 MG in Premix Bag 1 BAG IV SCH (21:12)
[2017-02-04] MEDS: Piperacillin/Tazobactam 4.5 GM in Sodium Chloride 0.9% 100 ML IV SCH ×4 (01:18→21:04)
[2017-02-04] MEDS: LORazepam 2 MG/ML MDV IVPUSH PRN ×2 (01:38→22:46)
[2017-02-04] MEDS: Sodium Chloride 0.9% 1,000 ML IV SCH (05:23)
--- NOTE | 2017-02-04 08:58 | PCM.PN ---
- General Info Date of Service: 02/04/17 Admission Dx/Problem (Free Text): Sepsis with Hypotension and IVDU Subjective Update: Follow Up Functional Status: Reports: pain controlled, tolerating diet, ambulating, urinating. Denies: new symptoms - Review of Systems General: Denies: Fever, Weakness, Fatigue, Malaise, Chills HEENT: Reports: no symptoms Pulmonary: Denies: shortness of breath Cardiovascular: Denies: Chest Pain, Palpitations, Dyspnea on Exertion, Edema Gastrointestinal: Denies: Abdominal pain, Nausea, Vomiting Genitourinary: Reports: no symptoms Musculoskeletal: Reports: no symptoms Skin: Denies: cyanosis, jaundice, pruritis, rash Neurological: Denies: Confusion, Dizziness, Seizure, Difficulty Walking, Weakness Psychiatric: Reports: anxiety. Denies: depression, agitation, cravings, hallucinations Systems Review Comment:: No overnight or acute issues. He is doing relatively well. He remains afebrile and his WBC has improved to 23K from 30K. His CRP has improved to 7 from 11. He has no new complaints. - Patient Data Vitals - most recent: Last Vital Signs Temp 36.8 C 02/04/17 08:54 Pulse 88 02/04/17 08:54 Resp 18 02/04/17 08:54 BP 124/71 02/04/17 08:54 Pulse Ox 98 02/04/17 08:54 Weight - most recent: 74.298 kg I&O - last 24 hours: Intake & Output 02/03/17 02/04/17 02/04/17 22:59 06:59 14:59 Intake Total 1500 2175 Balance 1500 2175 Lab Results last 24 hrs: Laboratory Results - last 24 hr 02/03/17 02/04/17 02/04/17 Range/Units 10:45 05:40 05:40 WBC 23.25 H (4.23-9.07) K/mm3 RBC 4.13 L (4.63-6.08) M/mm3 Hgb 12.1 L (13.7-17.5) gm/L Hct 35.4 L (40.1-51.0) % MCV 85.7 (79.0-92.2) fl MCH 29.3 (25.7-32.2) pg MCHC 34.2 (32.2-35.5) g/dl RDW Std Deviation 41.2 (35.1-43.9) fL Plt Count 166 (163-337) K/mm3 MPV 11.3 (9.4-12.3) fl Neut % (Auto) 82.3 H (34.0-67.9) % Lymph % (Auto) 10.5 L (21.8-53.1) % [place] % (Auto) 4.9 L (5.3-12.2) % Eos % (Auto) 1.6 (0.8-7.0) Baso % (Auto) 0.2 (0.1-1.2) % Neut # (Auto) 19.15 H (1.78-5.38) K/mm3 Lymph # (Auto) 2.43 (1.32-3.57) K/mm3 [place] # (Auto) 1.15 H (0.30-0.82) K/mm3 Eos # (Auto) 0.37 (0.04-0.54) K/mm3 Baso # (Auto) 0.04 (0.01-0.08) K/mm3 Manual Slide Review Abnormal smear Sodium 145 (136-145) mEq/L Potassium 3.7 (3.5-5.1) mEq/L Chloride 114 H (98-107) mEq/L Carbon Dioxide 21 (21-32) mEq/L Anion Gap 13.7 (5-15) BUN 10 (7-18) mg/dL Creatinine 1.2 (0.7-1.3) mg/dL Est Cr Clr Drug Dosing 98.89 mL/min Estimated GFR (MDRD) > 60 (>60) mL/min BUN/Creatinine Ratio 8.3 L (14-18) Glucose 73 L (74-106) mg/dL Calcium 8.2 L (8.5-10.1) mg/dL Magnesium 1.6 L (1.8-2.4) mg/dl C-Reactive Protein 7.0 H* (<1.0) mg/dL Vancomycin Trough 8.1 L (10.0-20.0) Kashif Results last 24 hrs: Microbiology 02/01/17 23:00 Urine Culture - Final Urine, Clean Catch NO GROWTH AFTER 2 DAYS 02/01/17 22:03 Aerobic Blood Culture - Preliminary Blood - Venous - Lab Draw NO GROWTH AFTER 2 DAYS Anaerobic Blood Culture - Preliminary NO GROWTH AFTER 2 DAYS 02/01/17 21:50 Aerobic Blood Culture - Preliminary Blood - Venous NO GROWTH AFTER 2 DAYS Anaerobic Blood Culture - Preliminary NO GROWTH AFTER 2 DAYS Med Orders - Current: Current Medications Acetaminophen (Tylenol) 650 mg PO Q4H PRN PRN Reason: Pain (Mild 1-3)/fever Last Admin: 02/02/17 20:33 Dose: 650 mg Acetaminophen/Butalbital/Caffeine (Fioricet 325-50-40 Mg) 1 tab PO Q4H PRN PRN Reason: Headache Last Admin: 02/02/17 16:36 Dose: 1 tab Albuterol/Ipratropium (Duoneb 3.0-0.5 Mg/3 Ml) 3 ml NEB Q4H PRN PRN Reason: Shortness Of Breath/wheezing Bisacodyl (Dulcolax) 5 mg PO DAILY PRN PRN Reason: Constipation Docusate Sodium (Colace) 100 mg PO BID PRN PRN Reason: Constipation Enoxaparin Sodium (Lovenox) 40 mg SUBCUT DAILY [facility] Last Admin: 02/03/17 08:55 Dose: 40 mg Famotidine (Pepcid) 20 mg PO BID [facility] Last Admin: 02/03/17 21:02 Dose: 20 mg Hydralazine HCl (Apresoline) 20 mg IVPUSH Q4H PRN PRN Reason: Hypertension Piperacillin Sod/Tazobactam (Sod 4.5 gm/ Sodium Chloride) 100 mls @ 33.333 mls/ hr IV Q6H [facility] Last Admin: 02/04/17 05:12 Dose: 33.333 mls/hr Sodium Chloride (Normal Saline) 1,000 mls @ 125 mls/hr IV ASDIRECTED [facility] Last Admin: 02/04/17 05:23 Dose: 125 mls/hr Vancomycin HCl 1 gm/ Sodium (Chloride) 250 mls @ 250 mls/hr IV Q8H [facility] Last Admin: 02/04/17 05:11 Dose: 250 mls/hr Levofloxacin/Dextrose 750 mg/ (Premix) 150 mls @ 100 mls/hr IV Q24H [facility] Last Admin: 02/03/17 21:12 Dose: 100 mls/hr Magnesium Sulfate 2 gm/ Premix 50 mls @ 25 mls/hr IV ONETIME ONE Stop: 02/04/17 10:59 Ibuprofen (Motrin) 600 mg PO Q6H PRN PRN Reason: Pain Last Admin: 02/03/17 18:05 Dose: 600 mg Lorazepam (Ativan) 1 mg IVPUSH Q4H PRN PRN Reason: Anxiety Last Admin: 02/04/17 01:38 Dose: 1 mg Lorazepam (Ativan) 1 mg PO Q4H PRN PRN Reason: Anxiety Last Admin: 02/03/17 18:06 Dose: 1 mg Magnesium Oxide (Magnesium Oxide) 400 mg PO BID [facility] Magnesium Sulfate (Pharmacy To Dose - Magnesium Replacement) 1 dose .XX ASDIRECTED PRN PRN Reason: rx to dose Metoprolol Tartrate (Lopressor) 5 mg IVPUSH Q4H PRN PRN Reason: Tachycardia Last Admin: 02/02/17 03:12 Dose: 5 mg Nicotine (Habitrol) 21 mg TRDERM DAILY [facility] Last Admin: 02/03/17 08:56 Dose: 21 mg Ondansetron HCl (Zofran) 4 mg IV Q6H PRN PRN Reason: Nausea/Vomiting Potassium Chloride (Pharmacy To Dose - Potassium Replacement) 1 dose .XX ASDIRECTED PRN PRN Reason: rx to dose Quetiapine Fumarate (Seroquel) 50 mg PO BID [facility] Last Admin: 02/03/17 21:03 Dose: 50 mg Saccharomyces Boulardii (Florastor) 250 mg PO BID [facility] Last Admin: 02/03/17 21:02 Dose: 250 mg Senna/Docusate Sodium (Senna Plus) 1 tab PO BID PRN PRN Reason: Constipation Temazepam (Restoril) 30 mg PO BEDTIME PRN PRN Reason: Sleep Last Admin: 02/03/17 21:04 Dose: 30 mg Vancomycin HCl (Pharmacy To Dose - Vancomycin) 1 dose .XX ASDIRECTED PRN PRN Reason: rx to dose Discontinued Medications Diphenhydramine HCl (Benadryl) 50 mg IVPUSH ONETIME ONE Stop: 02/02/17 07:25 Last Admin: 02/02/17 08:10 Dose: 50 mg Diphenhydramine HCl (Benadryl) 50 mg IVPUSH ONETIME ONE Stop: 02/02/17 21:57 Last Admin: 02/02/17 22:03 Dose: 50 mg Diphenhydramine HCl (Benadryl) 50 mg IVPUSH ONETIME ONE Stop: 02/02/17 23:41 Last Admin: 02/02/17 23:54 Dose: 50 mg Enoxaparin Sodium (Lovenox) 30 mg SUBCUT DAILY [facility] Last Admin: 02/02/17 08:10 Dose: 30 mg Enoxaparin Sodium (Lovenox) 10 mg SUBCUT ONETIME ONE Stop: 02/02/17 10:01 Last Admin: 02/02/17 09:51 Dose: 10 mg Sodium Chloride (Normal Saline) 1,000 mls @ 125 mls/hr IV ASDIRECTED [facility] Last Admin: 02/02/17 02:32 Dose: 125 mls/hr Sodium Chloride (Normal Saline) 1,000 mls @ 999 mls/hr IV ONETIME ONE Stop: 02/01/17 21:48 Last Admin: 02/01/17 21:06 Dose: 999 mls/hr Levofloxacin/Dextrose 750 mg/ (Premix) 150 mls @ 100 mls/hr IV Q24H [facility] Last Admin: 02/01/17 22:27 Dose: 100 mls/hr Vancomycin HCl 1 gm/Vancomycin HCl 500 mg/ Sodium Chloride 500 mls @ 333 mls/ hr IV Q24H [facility] Sodium Chloride (Normal Saline) 1,000 mls @ 999 mls/hr IV ONETIME ONE Stop: 02/01/17 23:12 Last Admin: 02/01/17 22:28 Dose: 999 mls/hr Vancomycin HCl 1 gm/ Sodium (Chloride) 250 mls @ 250 mls/hr IV Q12H [facility] Last Admin: 02/03/17 15:43 Dose: Not Given Magnesium Sulfate 2 gm/ Premix 50 mls @ 25 mls/hr IV ONETIME ONE Stop: 02/02/17 00:53 Last Admin: 02/02/17 00:12 Dose: 25 mls/hr Sodium Chloride (Normal Saline) 1,000 mls @ 999 mls/hr IV ONETIME ONE Stop: 02/02/17 02:00 Last Admin: 02/02/17 00:00 Dose: 999 mls/hr Sodium Chloride (Normal Saline) 1,000 mls @ 999 mls/hr IV ONETIME ONE Stop: 02/02/17 02:04 Last Admin: 02/02/17 01:13 Dose: 999 mls/hr Sodium Chloride (Normal Saline) 1,000 mls @ 250 mls/hr IV ASDIRECTED [facility] Last Admin: 02/02/17 21:48 Dose: 125 mls/hr Magnesium Sulfate 2 gm/ Premix 50 mls @ 25 mls/hr IV ONETIME ONE Stop: 02/02/17 11:34 Last Admin: 02/02/17 10:14 Dose: 25 mls/hr Magnesium Sulfate 2 gm/ Premix 50 mls @ 25 mls/hr IV ONETIME ONE Stop: 02/02/17 13:59 Last Admin: 02/02/17 12:23 Dose: Not Given Norepinephrine Bitartrate 4 mg (/ Dextrose/Water) 250 mls @ 7.5 mls/hr IV TITRATE [facility]RA[facility]N; 2 MCG/MIN PRN Reason: Protocol Last Titration: 02/02/17 19:30 Dose: 0 mcg/min, 0 mls/hr Ketorolac Tromethamine (Toradol) 30 mg IVPUSH Q6H PRN PRN Reason: Pain Lorazepam (Ativan) 1 mg IV Q6H PRN PRN Reason: Anxiety Last Admin: 02/02/17 18:11 Dose: 1 mg Meperidine HCl (Demerol) 50 mg IVPUSH Q6H PRN PRN Reason: Pain Last Admin: 02/03/17 09:08 Dose: 50 mg Nicotine (Habitrol) 21 mg TRDERM ONETIME ONE Stop: 02/01/17 21:59 Last Admin: 02/01/17 22:25 Dose: 21 mg Quetiapine Fumarate (Seroquel) 25 mg PO ONETIME ONE Stop: 02/02/17 12:42 Last Admin: 02/02/17 12:55 Dose: 25 mg Quetiapine Fumarate (Seroquel) 25 mg PO BID [facility] Saccharomyces Boulardii (Florastor) 250 mg PO TID [facility] Last Admin: 02/03/17 08:56 Dose: 250 mg Sumatriptan Succinate (Imitrex) 50 mg PO Q4HR PRN PRN Reason: Headache Last Admin: 02/02/17 01:20 Dose: 50 mg Sumatriptan Succinate (Imitrex) 50 mg PO Q2H PRN PRN Reason: Headache Last Admin: 02/02/17 05:11 Dose: 50 mg Temazepam (Restoril) 30 mg PO BEDTIME PRN PRN Reason: Sleep Last Admin: 02/02/17 20:37 Dose: 30 mg - Exam General: alert, oriented, cooperative, no acute distress HEENT: Pupils equal, Pupils reactive, EOMI, Mucous membr. moist/pink Neck: supple, trachea midline, no JVD, no thyromegaly Lungs: Clear to auscultation, Normal respiratory effort Cardiovascular: Regular Rate, Regular Rhythm, No Murmurs Abdomen: bowel sounds present, soft, no tenderness, no distension (Male) Exam: Deferred Back Exam: normal inspection, full range of motion Extremities: no edema, normal pulses, no tenderness/swelling, no clubbing, no cyanosis, no calf tenderness Peripheral Pulses: 3+: posterior tibial (L), posterior tibial (R), dorsalis pedis (L), dorsalis pedis (R) Skin: warm, dry, intact Neurological: no new focal deficit Psy/Mental Status: alert, normal affect, normal mood - Problem List Review Problem List Initiated/Reviewed/Updated: Yes - My Orders Last 24 Hours: My Active Orders 02/03/17 09:00 Enoxaparin [Lovenox] 40 mg SUBCUT DAILY 02/03/17 10:54 Temazepam [Restoril] 30 mg PO BEDTIME PRN 02/03/17 11:30 Vancomycin [Vancocin] 1 gm Sodium Chloride 0.9% [Normal Saline] 250 ml IV Q8H 02/03/17 11:55 Patient Status [ADT] Routine 02/03/17 13:16 EKG Documentation Completion [RC] STAT 02/03/17 16:29 LORazepam [Ativan] 1 mg PO Q4H PRN 02/03/17 21:00 Levofloxacin/Dextrose 5%-Water [Levaquin in D5W 750 MG/150 ML] 750 mg Premix Bag 1 bag IV Q24H Saccharomyces Boulardii [Florastor] 250 mg PO BID 02/04/17 09:00 Magnesium Sulfate/Water [Magnesium Sulfate 2 GM in Water 50 ML] 2 gm Premix Bag 1 bag IV ONETIME 02/04/17 11:00 VANCOMYCIN TROUGH [CHEM] Timed 02/04/17 21:00 Magnesium Oxide 400 mg PO BID 02/05/17 05:11 BASIC METABOLIC PANEL,BMP [CHEM] AM C-REACTIVE PROTEIN [CHEM] AM CBC WITH AUTO DIFF [HEME] AM MAGNESIUM [CHEM] AM 02/06/17 05:11 BASIC METABOLIC PANEL,BMP [CHEM] AM C-REACTIVE PROTEIN [CHEM] AM CBC WITH AUTO DIFF [HEME] AM MAGNESIUM [CHEM] AM 02/07/17 05:11 BASIC METABOLIC PANEL,BMP [CHEM] AM C-REACTIVE PROTEIN [CHEM] AM CBC WITH AUTO DIFF [HEME] AM MAGNESIUM [CHEM] AM - Plan Plan:: Assessment/Plan: Acute: Sepsis Status Post Profound Hypotension (Probable Bacteremia) - Likely from infected needle with IVDU: fever, leukoctyosis, hypotension - Carries hx/o IDVU with heroin - WBC is now 30 from 20.34 and CRP is now 11 from 7.5 - He was shooting up with his girlfriend today with "dilaudid" - Admits to re-using dirty needles - Received one dose of 1L NS, IV Vancomycin 1 gram and IV Zosyn 3.735 gram in [place] - LA now is 4.4, repeat level is 2 - Continue aggressive IV hydration - He is now off pressor - Continue IV Vancomycin daily and IV Zosyn Q6 for pharmacy to renally dose - He likely has bacteremia, as his girlfriend was found pos for GNB on her blood culture - Levaquin 750 mg IV daily was added last night, continue antibiotic - Awaiting blood culture report from [place], [place] IVDU with Dilaudid - Patient buys dilaudid pills either 2mg or 4 mg (for $10), crushed and soaked it on cotton balls to save it for later use and when ready to shoot, he then wet with water later to get liquid out via needle to inject - He admits a hx/o heroin IVD - He does this because he wants to "get high" - He does IVDU at least 2 times/month Acute on Chronic Substance Abuse - Hx/o Heroin IVDU - Hx/o Smoking Methamphetamine - Actively abusing dilaudid - Would like some help to get better - He attended chemical rehab in the past in [place]" per mother - NSAIDs PRN for pain management - He refused, SAC consult yesterday but after talking to him last night and this am, he is now agrreable to speak with Ethan Long Nicotine Dependence - Smokes 1ppd - Nicotine patch daily Anxiety and Depression - Adjusted Ativan frequency - Carries a significant hx/o Anxiety and Depression according to his mother - Awaiting Psych eval this am Resolved: S/p Nausea and Vomiting - PRN anti-emesis - H2B BID S/p Watery Diarrhea - Started today, has not had any episode - No recent travel outside the country - No unusual diet/drinks and no bad food - Last meal was a donut - Supportive care and continue to monitor S/p Mild Sinus Tachycardia - 2/2 profound hypotension and Sepsis - Continue aggressive hydration - Continue to monitor S/p Lactic Acidosis - LA 4.7 ---> 4.4 - Continue aggressive hydration - Follow up level in the afternoon S/p Hypotension Plan: He remains clinically stable He was transferred last night to Med-Surg PRN Meds for withdrawal symptoms Supportive Care Saline lock him SW/CM for d/c planning Tele-Psych eval Will repeat blood culture in am Additional orders as above LOS > 96 hrs due to complexity of presenting illness and possible pending rehab placement
[2017-02-04] MEDS ORDERED: Magnesium Sulfate/Water 2 GM in Premix Bag 1 BAG IV ONE (09:00)
[2017-02-04] MEDS: QUEtiapine 25 MG Tab PO SCH ×2 (10:10→21:06)
[2017-02-04] MEDS: Saccharomyces Boulardii (Probiotic) 250 MG Cap PO SCH ×2 (10:11→21:06)
[2017-02-04] MEDS: Nicotine 21 MG/24 Hr Patch TRDERM SCH (10:11)
[2017-02-04] MEDS: Enoxaparin 40 MG/0.4 ML Syringe SUBCUT SCH (10:19)
[2017-02-04] MEDS: Famotidine 20 MG Tab PO SCH ×2 (10:19→21:05)
[2017-02-04] MEDS ORDERED: Mirtazapine 30 MG Tab PO ONE (10:30)
--- NOTE | 2017-02-04 14:53 | PCM.SN ---
- Free Text/Narrative Note: Patient was seen by Dr. Hernandez, he recommended Remeron 30 mg po x 1 and 30 mg at bedtime.
--- NOTE | 2017-02-04 16:13 | CONS ---
CONSULTING PHYSICIAN: Bj Hernandez MD DATE OF CONSULTATION: 02/04/2017 This is a 60-minute clinical event. IDENTIFICATION: The patient is a 26-year-old male who is admitted to the MICU at [facility] on 02/01/2017, secondary to complications from IV opioid drug use. He is seen for psychiatric evaluation after being transferred to the Med-Surge Unit. CHIEF COMPLAINT: "Me and my girlfriend injected some sort of bacteria into our blood, and we both got really sick." HISTORY OF PRESENT ILLNESS: The patient is a 26-year-old male, out of [place], [place]; who had been using IV drugs with his girlfriend. Evidently, they crushed opioid medications and dissolved it into a cotton ball and then injected the solution IV and in doing so, also, inadvertently injected cotton fibers into their blood stream and developed sepsis and cotton fever. They were seen at the [place] [facility] and then transferred to [facility] in [place], [place], for further medical stabilization. The patient is stating that he has been struggling with opioid dependence for many years. He states "prior to coming to the hospital, I was actually doing pretty good mentally altamirano, it is just that the main issue is using opioids of any kind." Evidently, the patient began using at 16 years of age. His longest sobriety was for about a month when he went into treatment back about 2 or 3 years ago. He states, right now, most recently, he has been using about "6 to 8 Dilaudids a day." He states "I feel like if I could get my drug problem under control, that would solve a lot of issues." That said, the patient is struggling with feelings of hopelessness and depression. He states that a lot of times "that's what makes me want to use." He also reports that he is increasingly isolative, and he has a poor appetite. He has anxiety, but he states that the anxiety mainly "comes from the drugs." If he could get the drug use under better control, that would not be so much of an issue. The patient is wanting to try an antidepressant now to see if that will help with his mood. He states he was on an antidepressant in the past and while he did not feel that it really helped him and while he was still using drugs at the time he as taking the antidepressant "other people around me thought I did better and I seemed happier." The patient is denying that he is suicidal or homicidal. He denies any psychotic, delusional, or paranoid symptoms. He is denying any other illicit substance use or alcohol complicating his clinical picture at this point in time, and he states that the only thing he has been using lately are the opioids. He cannot remember what the antidepressant, that he was on in the past, that seemed to help him according to other people. Again, he did not feel much better on this antidepressant medication. He is stating that other people thought he was doing better. MEDICATIONS: Medications at the time of presentation, none prior to admission. Since admission, the patient has been started on Seroquel 25 mg b.i.d. and Ativan p.r.n. ALLERGIES: No known drug allergies. PAST MEDICAL HISTORY: 1. Sepsis. 2. Cotton fever. REVIEW OF SYSTEMS: Aside from blood and immune, all other major organ systems are negative at this point in time for acute difficulties or complications. FAMILY PSYCHIATRIC AND CD HISTORY: The patient reports maternal grandfather has a history of alcoholism and maternal uncles also have a history of alcoholism. PAST PSYCHIATRIC AND CD HISTORY: The patient denies any previous psychiatric hospitalizations. Again, reporting 1 chemical dependency treatment back in 16. He had about 1 to 2 months of sobriety. He was using opioids and meth at that point in time. Denies any previous suicide attempts or self-injurious behaviors. Denies any eating disorder history. He has been on psychiatric medications in the past for depression, but cannot remember their names. He began using opioids at 16 years of age. Longest sobriety was for about 1 month while he was in the treatment program. Currently, he has been using 6 to 8 Dilaudids per day. SOCIAL HISTORY: The patient was born in [place], [place]; raised in [place], [place]; [place], [place]; and [place], [place]. The patient's parents when the patient was in the 6th grade. He stayed with his mom after divorce. Mother worked in school systems while the patient was growing up. Father was [employer] dealership travel guide in [place]. The patient's highest level of education is trade school. 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 He has never been . He had been in a current relationship for about 7 years. His girlfriend works as a restaurant bartender in [place]. The couple have no children. He lives in [place], [place], with his girlfriend. Denies any children from any other relationships. He denies any prior service or any current legal difficulties. He was raised Buddhist. He enjoys playing basketball, dirt biking, and snowboarding. MENTAL STATUS EXAM: The patient is a 26-year-old white male in no apparent distress. Speech is of regular rate and rhythm. The patient is cognitively oriented. Psychomotor activity is within normal limits. There are no abnormal motor movements or tics observed. Gait and station are not observed. This patient is seated in a chair during the course of the interview. Mood is depressed. Affect is consistent with stated mood, restrictive but cooperative overall for the purposes of the inpatient psychiatric consult. There is no behavioral or stated evidence of acute suicidal or homicidal ideation or acute psychotic, delusional, or paranoid symptoms. Thought process is organized. There are no manic symptoms or loose associations evident. Judgment and insight appear unimpaired at this point in time. Motivation for help appears fair to good. Vital signs are stable at the time of presentation. IMPRESSION: [place] I: 1. Opioid dependence, F11.20. 2. Depression, not otherwise specified, F32.9. 3. Rule out major depressive disorder. [place] II: None. [place] III: 1. Sepsis. 2. Cotton fever. [place] IV: Severe. Lie[place] V: 55. PLAN: 1. Sobriety. 2. NA/AA rep to visit the patient while he is on the inpatient medical unit. 3. Pastoral guidance. 4. Begin trial of Remeron 30 mg at bedtime to help with mood, sleep initiation and maintenance, and anxiety reduction. 5. Also recommend that the patient have chemical dependency workup by [facility] and recommend outpatient or inpatient chemical dependency treatment. But it is felt that the patient will be unable to maintain sobriety on his own in the community. 6. The patient was apprised of benefits and side effects of his newly initiated psychiatric medication regimen. He acknowledges understanding of these facts and had no further questions by the end of the interview session. 7. Other medications as dosed and prescribed by the patient's primary inpatient medical treatment team. 8. We will continue to follow up with the patient on an as-needed basis while he remains on the inpatient medical unit. 9. Recommend that the patient followup with outpatient psychiatry when he is discharged back to the community to assess his overall function and efficacy of his newly prescribed psychiatric medication regimen. 10.Crisis plan is in place. ALDEN /[id number]
--- NOTE | 2017-02-04 18:51 | CONS ---
CONSULTING PHYSICIAN: Ethan Long LAC DATE OF CONSULTATION: 02/04/2017 TIME: 6:17 p.m. HISTORY: Received a request for an Alcohol and Drug consultation by phone call from Angelita DILLON on 02/04/2017. She stated that the patient had changed his mind about participating in an Alcohol and Drug evaluation and that he would like to talk to me. I arrived at the hospital at approximately 3 p.m. and spoke with the patient about his change of mind, the purpose of the evaluation, and possible outcomes resulting from the evaluation. After that conversation, the patient's family came into the room and we discussed the above with the family. The patient and patient's family requested that I come back later, as they wanted an opportunity to discuss the matter with the patient. I returned a half hour later and the family verbalized that they decided that the patient would not participate in Alcohol and Drug evaluation, as they did not want an involuntary commitment. Rather the family decided that they would make their own arrangements for substance abuse treatment. The patient and family's autonomy were respected. However, I informed them that it would be optimal if their plans for treatment were secured before the patient was discharged, as the patient's medical condition and addiction are serious and immediate intervention was recommended. I informed Angelita DILLON and Dr. Roach of the outcome of the consultation. Staff will respect the patient's autonomy. MMODAL /[id number]
[2017-02-04] MEDS: LORazepam 1 MG Tab PO PRN (19:01)
[2017-02-04] MEDS: Magnesium Oxide 400 MG Tab PO SCH (21:05)
[2017-02-04] MEDS: Mirtazapine 30 MG Tab PO SCH (21:06)
[2017-02-04] MEDS: Levofloxacin/Dextrose 5%-Water 750 MG in Premix Bag 1 BAG IV SCH (21:16)
[2017-02-05] MEDS: Piperacillin/Tazobactam 4.5 GM in Sodium Chloride 0.9% 100 ML IV SCH ×3 (04:37→20:10)
[2017-02-05] MEDS ORDERED: Magnesium Sulfate/Water 2 GM in Premix Bag 1 BAG IV ONE (08:00)
--- NOTE | 2017-02-05 08:24 | PCM.PN ---
- General Info Date of Service: 02/05/17 Admission Dx/Problem (Free Text): Sepsis with Hypotension and IVDU Subjective Update: Follow Up Functional Status: Reports: pain controlled, tolerating diet, ambulating, urinating. Denies: new symptoms - Review of Systems General: Denies: Fever, Weakness, Fatigue, Malaise, Chills HEENT: Reports: no symptoms Pulmonary: Denies: shortness of breath Cardiovascular: Denies: Chest Pain, Dyspnea on Exertion Gastrointestinal: Denies: Abdominal pain, Nausea, Vomiting Genitourinary: Reports: no symptoms Musculoskeletal: Reports: no symptoms Skin: Denies: cyanosis, rash Neurological: Denies: Confusion, Difficulty Walking, Weakness Psychiatric: Denies: depression, anxiety, agitation, cravings, hallucinations Systems Review Comment:: No overnight or acute issues. He is doing relatively well. He remains afebrile and his WBC is now down to 12K from 23K. He has no new complaints. His mg is 1.7. - Patient Data Vitals - most recent: Last Vital Signs Temp 37.2 C 02/04/17 20:34 Pulse 53 L 02/04/17 20:34 Resp 16 02/04/17 20:34 BP 135/81 02/04/17 20:34 Pulse Ox 100 02/04/17 20:34 Weight - most recent: 72.121 kg I&O - last 24 hours: Intake & Output 02/04/17 02/05/17 02/05/17 22:59 06:59 14:59 Intake Total 3140 750 Balance 3140 750 Lab Results last 24 hrs: Laboratory Results - last 24 hr 02/04/17 02/05/17 02/05/17 Range/Units 11:01 05:41 05:41 WBC 12.66 H (4.23-9.07) K/mm3 RBC 4.41 L (4.63-6.08) M/mm3 Hgb 12.8 L (13.7-17.5) gm/L Hct 37.3 L (40.1-51.0) % MCV 84.6 (79.0-92.2) fl MCH 29.0 (25.7-32.2) pg MCHC 34.3 (32.2-35.5) g/dl RDW Std Deviation 40.9 (35.1-43.9) fL Plt Count 215 (163-337) K/mm3 MPV 10.7 (9.4-12.3) fl Neut % (Auto) 65.7 (34.0-67.9) % Lymph % (Auto) 20.6 L (21.8-53.1) % [place] % (Auto) 8.8 (5.3-12.2) % Eos % (Auto) 2.5 (0.8-7.0) Baso % (Auto) 0.5 (0.1-1.2) % Neut # (Auto) 8.32 H (1.78-5.38) K/mm3 Lymph # (Auto) 2.61 (1.32-3.57) K/mm3 [place] # (Auto) 1.11 H (0.30-0.82) K/mm3 Eos # (Auto) 0.32 (0.04-0.54) K/mm3 Baso # (Auto) 0.06 (0.01-0.08) K/mm3 Manual Slide Review Abnormal smear Sodium 143 (136-145) mEq/L Potassium 3.6 (3.5-5.1) mEq/L Chloride 109 H (98-107) mEq/L Carbon Dioxide 22 (21-32) mEq/L Anion Gap 15.6 H (5-15) BUN 7 (7-18) mg/dL Creatinine 1.2 (0.7-1.3) mg/dL Est Cr Clr Drug Dosing 95.99 mL/min Estimated GFR (MDRD) > 60 (>60) mL/min BUN/Creatinine Ratio 5.8 L (14-18) Glucose 104 (74-106) mg/dL Calcium 8.2 L (8.5-10.1) mg/dL Magnesium 1.7 L (1.8-2.4) mg/dl C-Reactive Protein 3.6 H* (<1.0) mg/dL Vancomycin Trough 17.1 (10.0-20.0) Kashif Results last 24 hrs: Microbiology 02/01/17 22:03 Aerobic Blood Culture - Preliminary Blood - Venous - Lab Draw NO GROWTH AFTER 3 DAYS Anaerobic Blood Culture - Preliminary NO GROWTH AFTER 2 DAYS 02/01/17 21:50 Aerobic Blood Culture - Preliminary Blood - Venous NO GROWTH AFTER 3 DAYS Anaerobic Blood Culture - Preliminary NO GROWTH AFTER 2 DAYS 02/01/17 23:00 Urine Culture - Final Urine, Clean Catch NO GROWTH AFTER 2 DAYS Med Orders - Current: Current Medications Acetaminophen (Tylenol) 650 mg PO Q4H PRN PRN Reason: Pain (Mild 1-3)/fever Last Admin: 02/02/17 20:33 Dose: 650 mg Acetaminophen/Butalbital/Caffeine (Fioricet 325-50-40 Mg) 1 tab PO Q4H PRN PRN Reason: Headache Last Admin: 02/02/17 16:36 Dose: 1 tab Albuterol/Ipratropium (Duoneb 3.0-0.5 Mg/3 Ml) 3 ml NEB Q4H PRN PRN Reason: Shortness Of Breath/wheezing Bisacodyl (Dulcolax) 5 mg PO DAILY PRN PRN Reason: Constipation Docusate Sodium (Colace) 100 mg PO BID PRN PRN Reason: Constipation Enoxaparin Sodium (Lovenox) 40 mg SUBCUT DAILY [facility] Last Admin: 02/04/17 10:19 Dose: 40 mg Famotidine (Pepcid) 20 mg PO BID [facility] Last Admin: 02/04/17 21:05 Dose: 20 mg Hydralazine HCl (Apresoline) 20 mg IVPUSH Q4H PRN PRN Reason: Hypertension Vancomycin HCl 1 gm/ Sodium (Chloride) 250 mls @ 250 mls/hr IV Q8H [facility] Last Admin: 02/05/17 03:20 Dose: 250 mls/hr Levofloxacin/Dextrose 750 mg/ (Premix) 150 mls @ 100 mls/hr IV Q24H [facility] Last Admin: 02/04/17 21:16 Dose: 100 mls/hr Piperacillin Sod/Tazobactam (Sod 4.5 gm/ Sodium Chloride) 100 mls @ 25 mls/hr IV Q8H [facility] Last Admin: 02/05/17 04:37 Dose: 25 mls/hr Magnesium Sulfate 2 gm/ Premix 50 mls @ 25 mls/hr IV ONETIME ONE Stop: 02/05/17 09:59 Ibuprofen (Motrin) 600 mg PO Q6H PRN PRN Reason: Pain Last Admin: 02/03/17 18:05 Dose: 600 mg Lorazepam (Ativan) 1 mg IVPUSH Q4H PRN PRN Reason: Anxiety Last Admin: 02/04/17 22:46 Dose: 1 mg Lorazepam (Ativan) 1 mg PO Q4H PRN PRN Reason: Anxiety Last Admin: 02/04/17 19:01 Dose: 1 mg Magnesium Oxide (Magnesium Oxide) 400 mg PO BID [facility] Last Admin: 02/04/17 21:05 Dose: 400 mg Magnesium Sulfate (Pharmacy To Dose - Magnesium Replacement) 1 dose .XX ASDIRECTED PRN PRN Reason: rx to dose Metoprolol Tartrate (Lopressor) 5 mg IVPUSH Q4H PRN PRN Reason: Tachycardia Last Admin: 02/02/17 03:12 Dose: 5 mg Mirtazapine (Remeron) 30 mg PO BEDTIME [facility] Last Admin: 02/04/17 21:06 Dose: 30 mg Nicotine (Habitrol) 21 mg TRDERM DAILY [facility] Last Admin: 02/04/17 10:11 Dose: 21 mg Ondansetron HCl (Zofran) 4 mg IV Q6H PRN PRN Reason: Nausea/Vomiting Potassium Chloride (Pharmacy To Dose - Potassium Replacement) 1 dose .XX ASDIRECTED PRN PRN Reason: rx to dose Quetiapine Fumarate (Seroquel) 50 mg PO BID [facility] Last Admin: 02/04/17 21:06 Dose: 50 mg Saccharomyces Boulardii (Florastor) 250 mg PO BID [facility] Last Admin: 02/04/17 21:06 Dose: 250 mg Senna/Docusate Sodium (Senna Plus) 1 tab PO BID PRN PRN Reason: Constipation Temazepam (Restoril) 30 mg PO BEDTIME PRN PRN Reason: Sleep Last Admin: 02/03/17 21:04 Dose: 30 mg Vancomycin HCl (Pharmacy To Dose - Vancomycin) 1 dose .XX ASDIRECTED PRN PRN Reason: rx to dose Discontinued Medications Diphenhydramine HCl (Benadryl) 50 mg IVPUSH ONETIME ONE Stop: 02/02/17 07:25 Last Admin: 02/02/17 08:10 Dose: 50 mg Diphenhydramine HCl (Benadryl) 50 mg IVPUSH ONETIME ONE Stop: 02/02/17 21:57 Last Admin: 02/02/17 22:03 Dose: 50 mg Diphenhydramine HCl (Benadryl) 50 mg IVPUSH ONETIME ONE Stop: 02/02/17 23:41 Last Admin: 02/02/17 23:54 Dose: 50 mg Enoxaparin Sodium (Lovenox) 30 mg SUBCUT DAILY [facility] Last Admin: 02/02/17 08:10 Dose: 30 mg Enoxaparin Sodium (Lovenox) 10 mg SUBCUT ONETIME ONE Stop: 02/02/17 10:01 Last Admin: 02/02/17 09:51 Dose: 10 mg Sodium Chloride (Normal Saline) 1,000 mls @ 125 mls/hr IV ASDIRECTED [facility] Last Admin: 02/02/17 02:32 Dose: 125 mls/hr Sodium Chloride (Normal Saline) 1,000 mls @ 999 mls/hr IV ONETIME ONE Stop: 02/01/17 21:48 Last Admin: 02/01/17 21:06 Dose: 999 mls/hr Levofloxacin/Dextrose 750 mg/ (Premix) 150 mls @ 100 mls/hr IV Q24H [facility] Last Admin: 02/01/17 22:27 Dose: 100 mls/hr Piperacillin Sod/Tazobactam (Sod 4.5 gm/ Sodium Chloride) 100 mls @ 33.333 mls/ hr IV Q6H [facility] Last Admin: 02/04/17 11:38 Dose: 33.333 mls/hr Vancomycin HCl 1 gm/Vancomycin HCl 500 mg/ Sodium Chloride 500 mls @ 333 mls/ hr IV Q24H [facility] Sodium Chloride (Normal Saline) 1,000 mls @ 999 mls/hr IV ONETIME ONE Stop: 02/01/17 23:12 Last Admin: 02/01/17 22:28 Dose: 999 mls/hr Vancomycin HCl 1 gm/ Sodium (Chloride) 250 mls @ 250 mls/hr IV Q12H [facility] Last Admin: 02/03/17 15:43 Dose: Not Given Magnesium Sulfate 2 gm/ Premix 50 mls @ 25 mls/hr IV ONETIME ONE Stop: 02/02/17 00:53 Last Admin: 02/02/17 00:12 Dose: 25 mls/hr Sodium Chloride (Normal Saline) 1,000 mls @ 999 mls/hr IV ONETIME ONE Stop: 02/02/17 02:00 Last Admin: 02/02/17 00:00 Dose: 999 mls/hr Sodium Chloride (Normal Saline) 1,000 mls @ 999 mls/hr IV ONETIME ONE Stop: 02/02/17 02:04 Last Admin: 02/02/17 01:13 Dose: 999 mls/hr Sodium Chloride (Normal Saline) 1,000 mls @ 250 mls/hr IV ASDIRECTED [facility] Last Admin: 02/02/17 21:48 Dose: 125 mls/hr Magnesium Sulfate 2 gm/ Premix 50 mls @ 25 mls/hr IV ONETIME ONE Stop: 02/02/17 11:34 Last Admin: 02/02/17 10:14 Dose: 25 mls/hr Magnesium Sulfate 2 gm/ Premix 50 mls @ 25 mls/hr IV ONETIME ONE Stop: 02/02/17 13:59 Last Admin: 02/02/17 12:23 Dose: Not Given Norepinephrine Bitartrate 4 mg (/ Dextrose/Water) 250 mls @ 7.5 mls/hr IV TITRATE EFRAÍN; 2 MCG/MIN PRN Reason: Protocol Last Titration: 02/02/17 19:30 Dose: 0 mcg/min, 0 mls/hr Sodium Chloride (Normal Saline) 1,000 mls @ 125 mls/hr IV ASDIRECTED [facility] Last Admin: 02/04/17 05:23 Dose: 125 mls/hr Magnesium Sulfate 2 gm/ Premix 50 mls @ 25 mls/hr IV ONETIME ONE Stop: 02/04/17 10:59 Last Admin: 02/04/17 10:11 Dose: 25 mls/hr Ketorolac Tromethamine (Toradol) 30 mg IVPUSH Q6H PRN PRN Reason: Pain Lorazepam (Ativan) 1 mg IV Q6H PRN PRN Reason: Anxiety Last Admin: 02/02/17 18:11 Dose: 1 mg Meperidine HCl (Demerol) 50 mg IVPUSH Q6H PRN PRN Reason: Pain Last Admin: 02/03/17 09:08 Dose: 50 mg Mirtazapine (Remeron) 30 mg PO ONETIME ONE Stop: 02/04/17 10:31 Last Admin: 02/04/17 10:28 Dose: 30 mg Nicotine (Habitrol) 21 mg TRDERM ONETIME ONE Stop: 02/01/17 21:59 Last Admin: 02/01/17 22:25 Dose: 21 mg Quetiapine Fumarate (Seroquel) 25 mg PO ONETIME ONE Stop: 02/02/17 12:42 Last Admin: 02/02/17 12:55 Dose: 25 mg Quetiapine Fumarate (Seroquel) 25 mg PO BID EFRAÍN Saccharomyces Boulardii (Florastor) 250 mg PO TID FERAÍN Last Admin: 02/03/17 08:56 Dose: 250 mg Sumatriptan Succinate (Imitrex) 50 mg PO Q4HR PRN PRN Reason: Headache Last Admin: 02/02/17 01:20 Dose: 50 mg Sumatriptan Succinate (Imitrex) 50 mg PO Q2H PRN PRN Reason: Headache Last Admin: 02/02/17 05:11 Dose: 50 mg Temazepam (Restoril) 30 mg PO BEDTIME PRN PRN Reason: Sleep Last Admin: 02/02/17 20:37 Dose: 30 mg - Exam General: alert, oriented, cooperative, no acute distress HEENT: Pupils equal, Pupils reactive, Mucous membr. moist/pink Neck: supple, trachea midline, no JVD, no thyromegaly Lungs: Clear to auscultation, Normal respiratory effort Cardiovascular: Regular Rate, Regular Rhythm Abdomen: bowel sounds present, soft, no tenderness, no distension (Male) Exam: Deferred Back Exam: normal inspection, full range of motion Extremities: no edema, normal pulses, no tenderness/swelling, no clubbing, no cyanosis, no calf tenderness Peripheral Pulses: 3+: posterior tibial (L), posterior tibial (R), dorsalis pedis (L), dorsalis pedis (R) Skin: warm, dry, intact Neurological: no new focal deficit Psy/Mental Status: alert, normal affect, normal mood - Problem List Review Problem List Initiated/Reviewed/Updated: Yes - My Orders Last 24 Hours: My Active Orders 02/04/17 20:00 Piperacillin/Tazobactam [Zosyn] 4.5 gm Sodium Chloride 0.9% [Normal Saline] 100 ml IV Q8H 02/04/17 21:00 Magnesium Oxide 400 mg PO BID 02/04/17 22:30 CULTURE BLOOD [BC] Stat 02/04/17 22:39 CULTURE BLOOD [BC] Stat 02/05/17 08:00 Magnesium Sulfate/Water [Magnesium Sulfate 2 GM in Water 50 ML] 2 gm Premix Bag 1 bag IV ONETIME 02/05/17 09:00 Blood Culture x2 Reflex Set [OM.PC] Stat 02/06/17 05:11 BASIC METABOLIC PANEL,BMP [CHEM] AM C-REACTIVE PROTEIN [CHEM] AM CBC WITH AUTO DIFF [HEME] AM MAGNESIUM [CHEM] AM 02/07/17 05:11 BASIC METABOLIC PANEL,BMP [CHEM] AM C-REACTIVE PROTEIN [CHEM] AM CBC WITH AUTO DIFF [HEME] AM MAGNESIUM [CHEM] AM - Plan Plan:: Assessment/Plan: Acute: Probable Bacteremia likely GNB - Girlfriend has GNB with Acinetobacter species - They shared needles for IVDU - Continue IV Levaquin and Zosyn S/p Sepsis Status Post Profound Hypotension - Likely from infected needle with IVDU: fever, leukoctyosis, hypotension - Carries hx/o IDVU with heroin - WBC is now 30 from 20.34 and CRP is now 11 from 7.5 - He was shooting up with his girlfriend today with "dilaudid" - Admits to re-using dirty needles - Received one dose of 1L NS, IV Vancomycin 1 gram and IV Zosyn 3.735 gram in [place] - [place] now is 4.4, repeat level is 2 - Continue aggressive IV hydration - He is now off pressor - Continue IV Vancomycin daily and IV Zosyn Q6 for pharmacy to renally dose - He likely has bacteremia, as his girlfriend was found pos for GNB on her blood culture - Levaquin 750 mg IV daily was added last night, continue antibiotic - Awaiting blood culture report from [place], [place] IVDU with Dilaudid - Patient buys dilaudid pills either 2mg or 4 mg (for $10), crushed and soaked it on cotton balls to save it for later use and when ready to shoot, he then wet with water later to get liquid out via needle to inject - He admits a hx/o heroin IVD - He does this because he wants to "get high" - He does IVDU at least 2 times/month Acute on Chronic Substance Abuse - Hx/o Heroin IVDU - Hx/o Smoking Methamphetamine - Actively abusing dilaudid - Would like some help to get better - He attended chemical rehab in the past in "[place]" per mother - NSAIDs PRN for pain management - He refused, SAC consult yesterday but after talking to him last night and this am, he is now agrreable to speak with Ethan Long Nicotine Dependence - Smokes 1ppd - Nicotine patch daily Anxiety and Depression - Adjusted Ativan frequency - Carries a significant hx/o Anxiety and Depression according to his mother - Stable - Seen Dr. Hernandez, he is now on Remeron Resolved: S/p Nausea and Vomiting - PRN anti-emesis - H2B BID S/p Watery Diarrhea - Started today, has not had any episode - No recent travel outside the country - No unusual diet/drinks and no bad food - Last meal was a donut - Supportive care and continue to monitor S/p Mild Sinus Tachycardia - 2/2 profound hypotension and Sepsis - Continue aggressive hydration - Continue to monitor S/p Lactic Acidosis - LA 4.7 ---> 4.4 - Continue aggressive hydration - Follow up level in the afternoon S/p Hypotension Plan: He remains clinically stable Continue current treatment SW/CM for d/c planning Repeat blood culture Additional orders as above LOS > 96 hrs due to complexity of presenting illness and possible pending rehab placement
[2017-02-05] MEDS: Nicotine 21 MG/24 Hr Patch TRDERM SCH (08:40)
[2017-02-05] MEDS: Famotidine 20 MG Tab PO SCH ×2 (08:40→20:11)
[2017-02-05] MEDS: Saccharomyces Boulardii (Probiotic) 250 MG Cap PO SCH ×2 (08:40→20:11)
[2017-02-05] MEDS: Magnesium Oxide 400 MG Tab PO SCH ×2 (08:41→20:11)
[2017-02-05] MEDS: QUEtiapine 25 MG Tab PO SCH ×2 (08:41→20:11)
[2017-02-05] MEDS: Enoxaparin 40 MG/0.4 ML Syringe SUBCUT SCH (08:41)
[2017-02-05] MEDS: LORazepam 1 MG Tab PO PRN ×2 (16:01→20:12)
[2017-02-05] MEDS: Mirtazapine 30 MG Tab PO SCH (20:11)
[2017-02-05] MEDS: Levofloxacin/Dextrose 5%-Water 750 MG in Premix Bag 1 BAG IV SCH (20:11)
[2017-02-05] MEDS: Temazepam 30 MG Cap PO PRN (22:10)
[2017-02-06] MEDS: Piperacillin/Tazobactam 4.5 GM in Sodium Chloride 0.9% 100 ML IV SCH ×3 (05:13→22:34)
[2017-02-06] MEDS: LORazepam 1 MG Tab PO PRN ×4 (06:39→20:52)
[2017-02-06] MEDS: Nicotine 21 MG/24 Hr Patch TRDERM SCH (08:37)
[2017-02-06] MEDS: Enoxaparin 40 MG/0.4 ML Syringe SUBCUT SCH (08:38)
[2017-02-06] MEDS: Famotidine 20 MG Tab PO SCH ×2 (08:39→20:52)
[2017-02-06] MEDS: QUEtiapine 25 MG Tab PO SCH ×2 (08:39→20:52)
[2017-02-06] MEDS: Magnesium Oxide 400 MG Tab PO SCH ×2 (08:39→20:52)
--- NOTE | 2017-02-06 08:44 | PCM.PN ---
- General Info Date of Service: 02/06/17 Admission Dx/Problem (Free Text): Sepsis with Hypotension and IVDU Subjective Update: Follow Up Functional Status: Reports: pain controlled, tolerating diet, ambulating, urinating. Denies: new symptoms - Review of Systems General: Denies: Fever, Weakness, Fatigue, Malaise, Chills HEENT: Reports: no symptoms Pulmonary: Denies: shortness of breath Cardiovascular: Denies: Chest Pain, Palpitations Gastrointestinal: Denies: Abdominal pain, Constipation, Diarrhea, Nausea, Vomiting Genitourinary: Reports: no symptoms Musculoskeletal: Reports: no symptoms Skin: Denies: rash Neurological: Denies: Confusion, Dizziness, Seizure, Difficulty Walking, Weakness Psychiatric: Denies: confusion, depression, mood lability, anxiety, agitation, cravings, hallucinations, suicidal ideation Systems Review Comment:: No overnight or acute issues. He is doing relatively well. No new complaints. - Patient Data Vitals - most recent: Last Vital Signs Temp 36.6 C 02/06/17 03:04 Pulse 60 02/06/17 03:04 Resp 16 02/06/17 03:04 BP 100/56 L 02/06/17 03:04 Pulse Ox 97 02/06/17 03:04 Weight - most recent: 69.309 kg I&O - last 24 hours: Intake & Output 02/05/17 02/06/17 02/06/17 22:59 06:59 14:59 Intake Total 1170 525 Output Total 550 Balance 620 525 Lab Results last 24 hrs: Laboratory Results - last 24 hr 02/06/17 02/06/17 Range/Units 06:09 06:09 WBC 10.59 H (4.23-9.07) K/mm3 RBC 4.88 (4.63-6.08) M/mm3 Hgb 14.2 (13.7-17.5) gm/L Hct 41.1 (40.1-51.0) % MCV 84.2 (79.0-92.2) fl MCH 29.1 (25.7-32.2) pg MCHC 34.5 (32.2-35.5) g/dl RDW Std Deviation 41.5 (35.1-43.9) fL Plt Count 238 (163-337) K/mm3 MPV 10.0 (9.4-12.3) fl Neut % (Auto) 53.6 (34.0-67.9) % Lymph % (Auto) 21.0 L (21.8-53.1) % [place] % (Auto) 8.3 (5.3-12.2) % Eos % (Auto) 3.8 (0.8-7.0) Baso % (Auto) 0.8 (0.1-1.2) % Neut # (Auto) 5.68 H (1.78-5.38) K/mm3 Lymph # (Auto) 2.22 (1.32-3.57) K/mm3 [place] # (Auto) 0.88 H (0.30-0.82) K/mm3 Eos # (Auto) 0.40 (0.04-0.54) K/mm3 Baso # (Auto) 0.09 H (0.01-0.08) K/mm3 Manual Slide Review Normal smear Sodium 141 (136-145) mEq/L Potassium 3.9 (3.5-5.1) mEq/L Chloride 108 H (98-107) mEq/L Carbon Dioxide 23 (21-32) mEq/L Anion Gap 13.9 (5-15) BUN 8 (7-18) mg/dL Creatinine 1.1 (0.7-1.3) mg/dL Est Cr Clr Drug Dosing 100.64 mL/min Estimated GFR (MDRD) > 60 (>60) mL/min BUN/Creatinine Ratio 7.3 L (14-18) Glucose 94 (74-106) mg/dL Calcium 8.9 (8.5-10.1) mg/dL Magnesium 1.9 (1.8-2.4) mg/dl C-Reactive Protein 1.9 H* (<1.0) mg/dL Kashif Results last 24 hrs: Microbiology 02/04/17 22:30 Aerobic Blood Culture - Preliminary Blood - Venous - Lab Draw NO GROWTH AFTER 1 DAY Anaerobic Blood Culture - Preliminary NO GROWTH AFTER 1 DAY 02/04/17 22:39 Aerobic Blood Culture - Preliminary Blood - Venous NO GROWTH AFTER 1 DAY Anaerobic Blood Culture - Preliminary NO GROWTH AFTER 1 DAY 02/01/17 22:03 Aerobic Blood Culture - Preliminary Blood - Venous - Lab Draw NO GROWTH AFTER 4 DAYS Anaerobic Blood Culture - Preliminary NO GROWTH AFTER 4 DAYS 02/01/17 21:50 Aerobic Blood Culture - Preliminary Blood - Venous NO GROWTH AFTER 4 DAYS Anaerobic Blood Culture - Preliminary NO GROWTH AFTER 4 DAYS Med Orders - Current: Current Medications Acetaminophen (Tylenol) 650 mg PO Q4H PRN PRN Reason: Pain (Mild 1-3)/fever Last Admin: 02/02/17 20:33 Dose: 650 mg Acetaminophen/Butalbital/Caffeine (Fioricet 325-50-40 Mg) 1 tab PO Q4H PRN PRN Reason: Headache Last Admin: 02/02/17 16:36 Dose: 1 tab Albuterol/Ipratropium (Duoneb 3.0-0.5 Mg/3 Ml) 3 ml NEB Q4H PRN PRN Reason: Shortness Of Breath/wheezing Bisacodyl (Dulcolax) 5 mg PO DAILY PRN PRN Reason: Constipation Docusate Sodium (Colace) 100 mg PO BID PRN PRN Reason: Constipation Enoxaparin Sodium (Lovenox) 40 mg SUBCUT DAILY [facility] Last Admin: 02/06/17 08:38 Dose: 40 mg Famotidine (Pepcid) 20 mg PO BID [facility] Last Admin: 02/06/17 08:39 Dose: 20 mg Hydralazine HCl (Apresoline) 20 mg IVPUSH Q4H PRN PRN Reason: Hypertension Levofloxacin/Dextrose 750 mg/ (Premix) 150 mls @ 100 mls/hr IV Q24H [facility] Last Admin: 02/05/17 20:11 Dose: 100 mls/hr Piperacillin Sod/Tazobactam (Sod 4.5 gm/ Sodium Chloride) 100 mls @ 25 mls/hr IV Q8H [facility] Last Admin: 02/06/17 05:13 Dose: 25 mls/hr Ibuprofen (Motrin) 600 mg PO Q6H PRN PRN Reason: Pain Last Admin: 02/03/17 18:05 Dose: 600 mg Lorazepam (Ativan) 1 mg IVPUSH Q4H PRN PRN Reason: Anxiety Last Admin: 02/04/17 22:46 Dose: 1 mg Lorazepam (Ativan) 1 mg PO Q4H PRN PRN Reason: Anxiety Last Admin: 02/06/17 06:39 Dose: 1 mg Magnesium Oxide (Magnesium Oxide) 400 mg PO BID [facility] Last Admin: 02/06/17 08:39 Dose: 400 mg Magnesium Sulfate (Pharmacy To Dose - Magnesium Replacement) 1 dose .XX ASDIRECTED PRN PRN Reason: rx to dose Metoprolol Tartrate (Lopressor) 5 mg IVPUSH Q4H PRN PRN Reason: Tachycardia Last Admin: 02/02/17 03:12 Dose: 5 mg Mirtazapine (Remeron) 30 mg PO BEDTIME [facility] Last Admin: 02/05/17 20:11 Dose: 30 mg Nicotine (Habitrol) 21 mg TRDERM DAILY [facility] Last Admin: 02/06/17 08:37 Dose: 21 mg Ondansetron HCl (Zofran) 4 mg IV Q6H PRN PRN Reason: Nausea/Vomiting Potassium Chloride (Pharmacy To Dose - Potassium Replacement) 1 dose .XX ASDIRECTED PRN PRN Reason: rx to dose Quetiapine Fumarate (Seroquel) 50 mg PO BID [facility] Last Admin: 02/06/17 08:39 Dose: 50 mg Saccharomyces Boulardii (Florastor) 250 mg PO BID [facility] Last Admin: 02/05/17 20:11 Dose: 250 mg Senna/Docusate Sodium (Senna Plus) 1 tab PO BID PRN PRN Reason: Constipation Temazepam (Restoril) 30 mg PO BEDTIME PRN PRN Reason: Sleep Last Admin: 02/05/17 22:10 Dose: 30 mg Discontinued Medications Diphenhydramine HCl (Benadryl) 50 mg IVPUSH ONETIME ONE Stop: 02/02/17 07:25 Last Admin: 02/02/17 08:10 Dose: 50 mg Diphenhydramine HCl (Benadryl) 50 mg IVPUSH ONETIME ONE Stop: 02/02/17 21:57 Last Admin: 02/02/17 22:03 Dose: 50 mg Diphenhydramine HCl (Benadryl) 50 mg IVPUSH ONETIME ONE Stop: 02/02/17 23:41 Last Admin: 02/02/17 23:54 Dose: 50 mg Enoxaparin Sodium (Lovenox) 30 mg SUBCUT DAILY [facility] Last Admin: 02/02/17 08:10 Dose: 30 mg Enoxaparin Sodium (Lovenox) 10 mg SUBCUT ONETIME ONE Stop: 02/02/17 10:01 Last Admin: 02/02/17 09:51 Dose: 10 mg Sodium Chloride (Normal Saline) 1,000 mls @ 125 mls/hr IV ASDIRECTED [facility] Last Admin: 02/02/17 02:32 Dose: 125 mls/hr Sodium Chloride (Normal Saline) 1,000 mls @ 999 mls/hr IV ONETIME ONE Stop: 02/01/17 21:48 Last Admin: 02/01/17 21:06 Dose: 999 mls/hr Levofloxacin/Dextrose 750 mg/ (Premix) 150 mls @ 100 mls/hr IV Q24H [facility] Last Admin: 02/01/17 22:27 Dose: 100 mls/hr Piperacillin Sod/Tazobactam (Sod 4.5 gm/ Sodium Chloride) 100 mls @ 33.333 mls/ hr IV Q6H [facility] Last Admin: 02/04/17 11:38 Dose: 33.333 mls/hr Vancomycin HCl 1 gm/Vancomycin HCl 500 mg/ Sodium Chloride 500 mls @ 333 mls/ hr IV Q24H [facility] Sodium Chloride (Normal Saline) 1,000 mls @ 999 mls/hr IV ONETIME ONE Stop: 02/01/17 23:12 Last Admin: 02/01/17 22:28 Dose: 999 mls/hr Vancomycin HCl 1 gm/ Sodium (Chloride) 250 mls @ 250 mls/hr IV Q12H [facility] Last Admin: 02/03/17 15:43 Dose: Not Given Magnesium Sulfate 2 gm/ Premix 50 mls @ 25 mls/hr IV ONETIME ONE Stop: 02/02/17 00:53 Last Admin: 02/02/17 00:12 Dose: 25 mls/hr Sodium Chloride (Normal Saline) 1,000 mls @ 999 mls/hr IV ONETIME ONE Stop: 02/02/17 02:00 Last Admin: 02/02/17 00:00 Dose: 999 mls/hr Sodium Chloride (Normal Saline) 1,000 mls @ 999 mls/hr IV ONETIME ONE Stop: 02/02/17 02:04 Last Admin: 02/02/17 01:13 Dose: 999 mls/hr Sodium Chloride (Normal Saline) 1,000 mls @ 250 mls/hr IV ASDIRECTED [facility] Last Admin: 02/02/17 21:48 Dose: 125 mls/hr Magnesium Sulfate 2 gm/ Premix 50 mls @ 25 mls/hr IV ONETIME ONE Stop: 02/02/17 11:34 Last Admin: 02/02/17 10:14 Dose: 25 mls/hr Magnesium Sulfate 2 gm/ Premix 50 mls @ 25 mls/hr IV ONETIME ONE Stop: 02/02/17 13:59 Last Admin: 02/02/17 12:23 Dose: Not Given Norepinephrine Bitartrate 4 mg (/ Dextrose/Water) 250 mls @ 7.5 mls/hr IV TITRATE EFRAÍN; 2 MCG/MIN PRN Reason: Protocol Last Titration: 02/02/17 19:30 Dose: 0 mcg/min, 0 mls/hr Sodium Chloride (Normal Saline) 1,000 mls @ 125 mls/hr IV ASDIRECTED EFRAÍN Last Admin: 02/04/17 05:23 Dose: 125 mls/hr Vancomycin HCl 1 gm/ Sodium (Chloride) 250 mls @ 250 mls/hr IV Q8H EFRAÍN Last Admin: 02/05/17 03:20 Dose: 250 mls/hr Magnesium Sulfate 2 gm/ Premix 50 mls @ 25 mls/hr IV ONETIME ONE Stop: 02/04/17 10:59 Last Admin: 02/04/17 10:11 Dose: 25 mls/hr Magnesium Sulfate 2 gm/ Premix 50 mls @ 25 mls/hr IV ONETIME ONE Stop: 02/05/17 09:59 Last Admin: 02/05/17 09:23 Dose: 25 mls/hr Ketorolac Tromethamine (Toradol) 30 mg IVPUSH Q6H PRN PRN Reason: Pain Lorazepam (Ativan) 1 mg IV Q6H PRN PRN Reason: Anxiety Last Admin: 02/02/17 18:11 Dose: 1 mg Meperidine HCl (Demerol) 50 mg IVPUSH Q6H PRN PRN Reason: Pain Last Admin: 02/03/17 09:08 Dose: 50 mg Mirtazapine (Remeron) 30 mg PO ONETIME ONE Stop: 02/04/17 10:31 Last Admin: 02/04/17 10:28 Dose: 30 mg Nicotine (Habitrol) 21 mg TRDERM ONETIME ONE Stop: 02/01/17 21:59 Last Admin: 02/01/17 22:25 Dose: 21 mg Quetiapine Fumarate (Seroquel) 25 mg PO ONETIME ONE Stop: 02/02/17 12:42 Last Admin: 02/02/17 12:55 Dose: 25 mg Quetiapine Fumarate (Seroquel) 25 mg PO BID EFRAÍN Saccharomyces Boulardii (Florastor) 250 mg PO TID EFRAÍN Last Admin: 02/03/17 08:56 Dose: 250 mg Sumatriptan Succinate (Imitrex) 50 mg PO Q4HR PRN PRN Reason: Headache Last Admin: 02/02/17 01:20 Dose: 50 mg Sumatriptan Succinate (Imitrex) 50 mg PO Q2H PRN PRN Reason: Headache Last Admin: 02/02/17 05:11 Dose: 50 mg Temazepam (Restoril) 30 mg PO BEDTIME PRN PRN Reason: Sleep Last Admin: 02/02/17 20:37 Dose: 30 mg Vancomycin HCl (Pharmacy To Dose - Vancomycin) 1 dose .XX ASDIRECTED PRN PRN Reason: rx to dose - Exam General: alert, oriented, cooperative, no acute distress HEENT: Pupils equal, Pupils reactive, EOMI, Mucous membr. moist/pink Neck: supple, trachea midline, no JVD, no thyromegaly Lungs: Clear to auscultation, Normal respiratory effort Cardiovascular: Regular Rate, Regular Rhythm, No Murmurs Abdomen: bowel sounds present, soft, no tenderness, no distension (Male) Exam: Deferred Back Exam: normal inspection, decreased range of motion Extremities: no edema, normal pulses, no tenderness/swelling, no clubbing, no cyanosis, no calf tenderness Peripheral Pulses: 3+: dorsalis pedis (L), dorsalis pedis (R) Skin: warm, dry, intact Neurological: no new focal deficit Psy/Mental Status: alert, normal affect, normal mood - Problem List Review Problem List Initiated/Reviewed/Updated: Yes - My Orders Last 24 Hours: My Active Orders 02/05/17 09:00 Blood Culture x2 Reflex Set [OM.PC] Stat 02/07/17 05:11 BASIC METABOLIC PANEL,BMP [CHEM] AM C-REACTIVE PROTEIN [CHEM] AM CBC WITH AUTO DIFF [HEME] AM MAGNESIUM [CHEM] AM - Plan Plan:: Assessment/Plan: Acute: Probable Bacteremia likely GNB - Girlfriend has GNB with Acinetobacter species - They shared needles for IVDU - Continue IV Levaquin and Zosyn - WBC is 10.59 and CRP is now 1.9 IVDU with Dilaudid - Patient buys dilaudid pills either 2mg or 4 mg (for $10), crushed and soaked it on cotton balls to save it for later use and when ready to shoot, he then wet with water later to get liquid out via needle to inject - He admits a hx/o heroin IVD - He does this because he wants to "get high" - He does IVDU at least 2 times/month Acute on Chronic Substance Abuse - Hx/o Heroin IVDU - Hx/o Smoking Methamphetamine - Actively abusing dilaudid - Would like some help to get better - He attended chemical rehab in the past in [place]" per mother - NSAIDs PRN for pain management - He refused, SAC consult yesterday but after talking to him last night and this am, he is now agrreable to speak with Ethan Long Nicotine Dependence - Smokes 1ppd - Nicotine patch daily Anxiety and Depression - Adjusted Ativan frequency - Carries a significant hx/o Anxiety and Depression according to his mother - Stable - Seen Dr. Hernandez, he is now on Remeron Resolved: S/p Nausea and Vomiting - PRN anti-emesis - H2B BID S/p Watery Diarrhea - Started today, has not had any episode - No recent travel outside the country - No unusual diet/drinks and no bad food - Last meal was a donut - Supportive care and continue to monitor S/p Mild Sinus Tachycardia - 2/2 profound hypotension and Sepsis - Continue aggressive hydration - Continue to monitor S/p Lactic Acidosis - LA 4.7 ---> 4.4 - Continue aggressive hydration - Follow up level in the afternoon S/p Sepsis Status Post Profound Hypotension - Likely from infected needle with IVDU: fever, leukoctyosis, hypotension - Carries hx/o IDVU with heroin - WBC is now 30 from 20.34 and CRP is now 11 from 7.5 - He was shooting up with his girlfriend today with "dilaudid" - Admits to re-using dirty needles - Received one dose of 1L NS, IV Vancomycin 1 gram and IV Zosyn 3.735 gram in [place] - LA now is 4.4, repeat level is 2 - Continue aggressive IV hydration - He is now off pressor - Continue IV Vancomycin daily and IV Zosyn Q6 for pharmacy to renally dose - He likely has bacteremia, as his girlfriend was found pos for GNB on her blood culture - Levaquin 750 mg IV daily was added last night, continue antibiotic - Awaiting blood culture report from [facility] Plan: He remains clinically stable Continue current treatment / for d/c planning Awaiting repeat blood culture result in Additional orders as above Possible d/c in am Patient refused SAC, per family he will be going to inpatient treatment in [place]. No specific date has been set for it.
[2017-02-06] MEDS: Saccharomyces Boulardii (Probiotic) 250 MG Cap PO SCH ×2 (11:39→20:52)
[2017-02-06] MEDS: Mirtazapine 30 MG Tab PO SCH (20:52)
[2017-02-06] MEDS: Levofloxacin/Dextrose 5%-Water 750 MG in Premix Bag 1 BAG IV SCH (20:59)
[2017-02-06] MEDS: Temazepam 30 MG Cap PO PRN (22:34)
[2017-02-07] MEDS: Piperacillin/Tazobactam 4.5 GM in Sodium Chloride 0.9% 100 ML IV SCH (04:57)
[2017-02-07] MEDS: LORazepam 1 MG Tab PO PRN (05:59)
[2017-02-07] MEDS: Saccharomyces Boulardii (Probiotic) 250 MG Cap PO SCH (08:51)
[2017-02-07] MEDS: Enoxaparin 40 MG/0.4 ML Syringe SUBCUT SCH (08:51)
[2017-02-07] MEDS: Magnesium Oxide 400 MG Tab PO SCH (08:51)
[2017-02-07] MEDS: Nicotine 21 MG/24 Hr Patch TRDERM SCH (08:51)
[2017-02-07] MEDS: Famotidine 20 MG Tab PO SCH (08:52)
[2017-02-07] MEDS: QUEtiapine 25 MG Tab PO SCH (08:52)
--- NOTE | 2017-02-07 10:15 | PCM.DCSUM1 ---
Discharge Summary - Hospital Course Free Text/Narrative:: This is a 26 yo white male with past medical hx/o anxiety, depression, substance abuse who initially presented to [facility] with complaints of abdominal pain associated with nausea, vomiting and headache. He also admits to having watery diarrhea that just started this am. Patient carries a hx/o chronic IVDU, today he and his girlfriend admit to injecting dilaudid from a cotton and saved it to use for a few days later. However he did not use a clean needle. According to him, he buys dilaudid pills from friends, either 2 or 4 mg for $10 each; crushed, saved it on a cotton ball and wet it later to get liquid out and then inject. He has been doing this for 2 years now. He usually injects at least 2 times a month. In [facility], his initial work up shows a CBC remarkable for WBC of 2.9. His chemistry is significant for Cr 1.7, AST 249, and ALT 108. His initial vital signs were Temp 101.8, HR 170, RR 20, O2 sat 100 on RA, and BP 109/43 mmHg. Patient received one time dose of 1L NS bolus, Zofran 4mg IVP, Toradol 30 mg IVP , Zosyn 3.375 mg IV and Vancomycin 1 gram IV before he was transferred to [facility] for higher level of care. Hospitalist service was consulted for admission for sepsis, hemodynamic instability, likely bacteremia due to IVDA. BC from [facility] have been negative, BC here have been negative. He was covered with triple antibiotic therapy. He had slow response, WBC and CRP now improved. Fevers resolved, hemodynamically he improved and is stable. He and his family refused to have evaluation with [facility] during his stay. Dr. Hernandez, Psychiatry was consulted with medication changes/ recommendations and recommendations for inpatient rehab stay. SW was working diligently with him and family to assist with inpatient rehab stay. He is medically stable for discharge and will be discharged today. - Discharge Data Discharge Date: 02/07/17 (discharge date 02/01/17) Discharge Disposition: Home, Self-Care 01 Condition: Good - Patient Summary/Data Operative Procedure(s) Performed: None Complications: None Consults: Consultations 02/01/17 21:53 Consult to Case Management [CONS] Routine Consult to Packing Room Worker [CONS] Routine Consult to Spiritual Care [CONS] Routine 02/01/17 22:03 Consult for Substance Abuse [CONS] Routine 02/02/17 19:48 Consult to Physician [CONS] Routine Labs Pending at D/C: HIV and Hepatitis panel Recommended Follow-up Testing/Procedures: Recommend Inpatient Rehab for drug addiction Patient refused to see [facility] while hospitalized Planned Operative Procedure(s) after DC: None Hospital Course: As above - Patient Instructions Diet: Usual Diet as Tolerated, Drink 8-10+ Glasses/Day Activity: As Tolerated Driving: Do Not Drive Showering/Bathing: May Shower Notify Provider of: Fever, Increased Pain, Swelling and Redness, Nausea and/or Vomiting - Discharge Plan Prescriptions/Med Rec: Magnesium Oxide 400 mg PO BID #60 tablet Mirtazapine [Remeron] 30 mg PO BEDTIME #30 tablet Nicotine [Habitrol] 21 mg TRDERM DAILY #30 patch QUEtiapine [SEROquel] 50 mg PO BID #60 tablet Home Medications: Home Meds PARoxetine [Paxil] 20 mg PO DAILY 02/05/17 [History] Magnesium Oxide 400 mg PO BID #60 tablet 02/07/17 [Rx] Mirtazapine [Remeron] 30 mg PO BEDTIME #30 tablet 02/07/17 [Rx] Nicotine [Habitrol] 21 mg TRDERM DAILY #30 patch 02/07/17 [Rx] QUEtiapine [SEROquel] 50 mg PO BID #60 tablet 02/07/17 [Rx] Patient Handouts: Smoking Cessation, Tips for Success, [id number], Stimulant Use Disorder-Amphetamines, Cannabis Use Disorder, Chemical Dependency, Substance Use Disorder, Sepsis, Adult, Opioid Use Disorder Referrals: Lacey Stark [Other] - 02/12/17 2:00 pm - Discharge Summary/Plan Comment DC Time >30 min.: Yes (40 min) - General Info Admission Dx/Problem (Free Text: Sepsis with Hypotension and IVDU Patient doing well, feeling well today. VSS. Plans for discharge today. Patient and family have requested to arrange their own rehab stay and have refused to speak to [facility] during hospitalization. Functional Status: Reports: pain controlled, tolerating diet, ambulating, urinating. Denies: new symptoms - Review of Systems General: Reports: No Symptoms HEENT: Reports: no symptoms Pulmonary: Reports: no symptoms Cardiovascular: Reports: No Symptoms Gastrointestinal: Reports: No symptoms Genitourinary: Reports: no symptoms Musculoskeletal: Reports: no symptoms Skin: Reports: no symptoms Neurological: Reports: No Symptoms Psychiatric: Reports: no symptoms - Patient Data Vitals - Most Recent: Last Vital Signs Temp 98.8 F 02/06/17 21:02 Pulse 75 02/06/17 21:02 Resp 18 02/06/17 21:02 BP 121/76 02/06/17 21:02 Pulse Ox 99 02/06/17 21:02 Weight - Most Recent: 154 lb I&O - Last 24 hours: Intake & Output 02/06/17 02/07/17 02/07/17 22:59 06:59 14:59 Intake Total 1350 1600 Output Total 3 Balance 1347 1600 Lab Results - Last 24 hrs: Laboratory Results - last 24 hr 02/01/17 02/01/17 02/07/17 Range/Units 22:55 22:55 05:15 WBC 12.39 H (4.23-9.07) K/mm3 RBC 4.93 (4.63-6.08) M/mm3 Hgb 13.8 (13.7-17.5) gm/L Hct 41.6 (40.1-51.0) % MCV 84.4 (79.0-92.2) fl MCH 28.0 (25.7-32.2) pg MCHC 33.2 (32.2-35.5) g/dl RDW Std Deviation 41.1 (35.1-43.9) fL Plt Count 255 (163-337) K/mm3 MPV 10.5 (9.4-12.3) fl Neut % (Auto) 51.9 (34.0-67.9) % Lymph % (Auto) 19.2 L (21.8-53.1) % Rosebud % (Auto) 11.7 (5.3-12.2) % Eos % (Auto) 3.4 (0.8-7.0) Baso % (Auto) 0.6 (0.1-1.2) % Neut # (Auto) 6.44 H (1.78-5.38) K/mm3 Lymph # (Auto) 2.38 (1.32-3.57) K/mm3 Rosebud # (Auto) 1.45 H (0.30-0.82) K/mm3 Eos # (Auto) 0.42 (0.04-0.54) K/mm3 Baso # (Auto) 0.07 (0.01-0.08) K/mm3 Manual Slide Review Normal smear Sodium (136-145) mEq/L Potassium (3.5-5.1) mEq/L Chloride (98-107) mEq/L Carbon Dioxide (21-32) mEq/L Anion Gap (5-15) BUN (7-18) mg/dL Creatinine (0.7-1.3) mg/dL Est Cr Clr Drug Dosing mL/min Estimated GFR (MDRD) (>60) mL/min BUN/Creatinine Ratio (14-18) Glucose (74-106) mg/dL Calcium (8.5-10.1) mg/dL Magnesium (1.8-2.4) mg/dl C-Reactive Protein (<1.0) mg/dL Urine N-Methylformamide Not detected (NOTDET) ng/mL Ur Codeine (LC/MS/MS) Not detected (NOTDET) ng/mL Ur Morphine (LC/MS/MS) Not detected (NOTDET) ng/mL U Hydrocodone Confirm Not detected (NOTDET) ng/mL Ur Norhydrocodone Not detected (NOTDET) ng/mL Ur Noroxycodone Not detected (NOTDET) ng/mL Ur Oxycodone LC/MS/MS Not detected (NOTDET) ng/mL Ur Oxymorphone LC/MS/MS Not detected (NOTDET) ng/mL U Hydromorphone Confirm 1421 H (NOTDET) ng/mL U Amphetam Cnfrm GC/MS 308 H (NOTDET) ng/mL U Amphetamine/Methamph 84 H (NOTDET) ng/mL Urine MDEA Not detected (NOTDET) ng/mL Urine MDA Not detected (NOTDET) ng/mL Urine MDMA Screen Not detected (NOTDET) ng/mL 02/07/17 Range/Units 05:15 WBC (4.23-9.07) K/mm3 RBC (4.63-6.08) M/mm3 Hgb (13.7-17.5) gm/L Hct (40.1-51.0) % MCV (79.0-92.2) fl MCH (25.7-32.2) pg MCHC (32.2-35.5) g/dl RDW Std Deviation (35.1-43.9) fL Plt Count (163-337) K/mm3 MPV (9.4-12.3) fl Neut % (Auto) (34.0-67.9) % Lymph % (Auto) (21.8-53.1) % Rosebud % (Auto) (5.3-12.2) % Eos % (Auto) (0.8-7.0) Baso % (Auto) (0.1-1.2) % Neut # (Auto) (1.78-5.38) K/mm3 Lymph # (Auto) (1.32-3.57) K/mm3 Rosebud # (Auto) (0.30-0.82) K/mm3 Eos # (Auto) (0.04-0.54) K/mm3 Baso # (Auto) (0.01-0.08) K/mm3 Manual Slide Review Sodium 141 (136-145) mEq/L Potassium 3.9 (3.5-5.1) mEq/L Chloride 107 (98-107) mEq/L Carbon Dioxide 23 (21-32) mEq/L Anion Gap 14.9 (5-15) BUN 9 (7-18) mg/dL Creatinine 1.0 (0.7-1.3) mg/dL Est Cr Clr Drug Dosing 110.70 mL/min Estimated GFR (MDRD) > 60 (>60) mL/min BUN/Creatinine Ratio 9.0 L (14-18) Glucose 94 (74-106) mg/dL Calcium 9.1 (8.5-10.1) mg/dL Magnesium 2.0 (1.8-2.4) mg/dl C-Reactive Protein 1.0 (<1.0) mg/dL Urine N-Methylformamide (NOTDET) ng/mL Ur Codeine (LC/MS/MS) (NOTDET) ng/mL Ur Morphine (LC/MS/MS) (NOTDET) ng/mL U Hydrocodone Confirm (NOTDET) ng/mL Ur Norhydrocodone (NOTDET) ng/mL Ur Noroxycodone (NOTDET) ng/mL Ur Oxycodone LC/MS/MS (NOTDET) ng/mL Ur Oxymorphone LC/MS/MS (NOTDET) ng/mL U Hydromorphone Confirm (NOTDET) ng/mL U Amphetam Cnfrm GC/MS (NOTDET) ng/mL U Amphetamine/Methamph (NOTDET) ng/mL Urine MDEA (NOTDET) ng/mL Urine MDA (NOTDET) ng/mL Urine MDMA Screen (NOTDET) ng/mL DONAVAN Results - Last 24 hrs: Microbiology 02/04/17 22:39 Aerobic Blood Culture - Preliminary Blood - Venous NO GROWTH AFTER 2 DAYS Anaerobic Blood Culture - Preliminary NO GROWTH AFTER 2 DAYS 02/04/17 22:30 Aerobic Blood Culture - Preliminary Blood - Venous - Lab Draw NO GROWTH AFTER 2 DAYS Anaerobic Blood Culture - Preliminary NO GROWTH AFTER 2 DAYS 02/01/17 22:03 Aerobic Blood Culture - Preliminary Blood - Venous - Lab Draw NO GROWTH AFTER 5 DAYS Anaerobic Blood Culture - Preliminary NO GROWTH AFTER 5 DAYS 02/01/17 21:50 Aerobic Blood Culture - Preliminary Blood - Venous NO GROWTH AFTER 5 DAYS Anaerobic Blood Culture - Preliminary NO GROWTH AFTER 5 DAYS Med Orders - Current: Current Medications Acetaminophen (Tylenol) 650 mg PO Q4H PRN PRN Reason: Pain (Mild 1-3)/fever Last Admin: 02/02/17 20:33 Dose: 650 mg Acetaminophen/Butalbital/Caffeine (Fioricet 325-50-40 Mg) 1 tab PO Q4H PRN PRN Reason: Headache Last Admin: 02/02/17 16:36 Dose: 1 tab Albuterol/Ipratropium (Duoneb 3.0-0.5 Mg/3 Ml) 3 ml NEB Q4H PRN PRN Reason: Shortness Of Breath/wheezing Bisacodyl (Dulcolax) 5 mg PO DAILY PRN PRN Reason: Constipation Docusate Sodium (Colace) 100 mg PO BID PRN PRN Reason: Constipation Enoxaparin Sodium (Lovenox) 40 mg SUBCUT DAILY [facility] Last Admin: 02/07/17 08:51 Dose: 40 mg Famotidine (Pepcid) 20 mg PO BID [facility] Last Admin: 02/07/17 08:52 Dose: 20 mg Hydralazine HCl (Apresoline) 20 mg IVPUSH Q4H PRN PRN Reason: Hypertension Levofloxacin/Dextrose 750 mg/ (Premix) 150 mls @ 100 mls/hr IV Q24H [facility] Last Admin: 02/06/17 20:59 Dose: 100 mls/hr Piperacillin Sod/Tazobactam (Sod 4.5 gm/ Sodium Chloride) 100 mls @ 25 mls/hr IV Q8H [facility] Last Admin: 02/07/17 04:57 Dose: 25 mls/hr Ibuprofen (Motrin) 600 mg PO Q6H PRN PRN Reason: Pain Last Admin: 02/03/17 18:05 Dose: 600 mg Lorazepam (Ativan) 1 mg IVPUSH Q4H PRN PRN Reason: Anxiety Last Admin: 02/04/17 22:46 Dose: 1 mg Lorazepam (Ativan) 1 mg PO Q4H PRN PRN Reason: Anxiety Last Admin: 02/07/17 05:59 Dose: 1 mg Magnesium Oxide (Magnesium Oxide) 400 mg PO BID [facility] Last Admin: 02/07/17 08:51 Dose: 400 mg Magnesium Sulfate (Pharmacy To Dose - Magnesium Replacement) 1 dose .XX ASDIRECTED PRN PRN Reason: rx to dose Metoprolol Tartrate (Lopressor) 5 mg IVPUSH Q4H PRN PRN Reason: Tachycardia Last Admin: 02/02/17 03:12 Dose: 5 mg Mirtazapine (Remeron) 30 mg PO BEDTIME [facility] Last Admin: 02/06/17 20:52 Dose: 30 mg Nicotine (Habitrol) 21 mg TRDERM DAILY [facility] Last Admin: 02/07/17 08:51 Dose: 21 mg Ondansetron HCl (Zofran) 4 mg IV Q6H PRN PRN Reason: Nausea/Vomiting Potassium Chloride (Pharmacy To Dose - Potassium Replacement) 1 dose .XX ASDIRECTED PRN PRN Reason: rx to dose Quetiapine Fumarate (Seroquel) 50 mg PO BID [facility] Last Admin: 02/07/17 08:52 Dose: 50 mg Saccharomyces Boulardii (Florastor) 250 mg PO BID [facility] Last Admin: 02/07/17 08:51 Dose: 250 mg Senna/Docusate Sodium (Senna Plus) 1 tab PO BID PRN PRN Reason: Constipation Temazepam (Restoril) 30 mg PO BEDTIME PRN PRN Reason: Sleep Last Admin: 02/06/17 22:34 Dose: 30 mg Discontinued Medications Diphenhydramine HCl (Benadryl) 50 mg IVPUSH ONETIME ONE Stop: 02/02/17 07:25 Last Admin: 02/02/17 08:10 Dose: 50 mg Diphenhydramine HCl (Benadryl) 50 mg IVPUSH ONETIME ONE Stop: 02/02/17 21:57 Last Admin: 02/02/17 22:03 Dose: 50 mg Diphenhydramine HCl (Benadryl) 50 mg IVPUSH ONETIME ONE Stop: 02/02/17 23:41 Last Admin: 02/02/17 23:54 Dose: 50 mg Enoxaparin Sodium (Lovenox) 30 mg SUBCUT DAILY [facility] Last Admin: 02/02/17 08:10 Dose: 30 mg Enoxaparin Sodium (Lovenox) 10 mg SUBCUT ONETIME ONE Stop: 02/02/17 10:01 Last Admin: 02/02/17 09:51 Dose: 10 mg Sodium Chloride (Normal Saline) 1,000 mls @ 125 mls/hr IV ASDIRECTED [facility] Last Admin: 02/02/17 02:32 Dose: 125 mls/hr Sodium Chloride (Normal Saline) 1,000 mls @ 999 mls/hr IV ONETIME ONE Stop: 02/01/17 21:48 Last Admin: 02/01/17 21:06 Dose: 999 mls/hr Levofloxacin/Dextrose 750 mg/ (Premix) 150 mls @ 100 mls/hr IV Q24H [facility] Last Admin: 02/01/17 22:27 Dose: 100 mls/hr Piperacillin Sod/Tazobactam (Sod 4.5 gm/ Sodium Chloride) 100 mls @ 33.333 mls/ hr IV Q6H [facility] Last Admin: 02/04/17 11:38 Dose: 33.333 mls/hr Vancomycin HCl 1 gm/Vancomycin HCl 500 mg/ Sodium Chloride 500 mls @ 333 mls/ hr IV Q24H [facility] Sodium Chloride (Normal Saline) 1,000 mls @ 999 mls/hr IV ONETIME ONE Stop: 02/01/17 23:12 Last Admin: 02/01/17 22:28 Dose: 999 mls/hr Vancomycin HCl 1 gm/ Sodium (Chloride) 250 mls @ 250 mls/hr IV Q12H [facility] Last Admin: 02/03/17 15:43 Dose: Not Given Magnesium Sulfate 2 gm/ Premix 50 mls @ 25 mls/hr IV ONETIME ONE Stop: 02/02/17 00:53 Last Admin: 02/02/17 00:12 Dose: 25 mls/hr Sodium Chloride (Normal Saline) 1,000 mls @ 999 mls/hr IV ONETIME ONE Stop: 02/02/17 02:00 Last Admin: 02/02/17 00:00 Dose: 999 mls/hr Sodium Chloride (Normal Saline) 1,000 mls @ 999 mls/hr IV ONETIME ONE Stop: 02/02/17 02:04 Last Admin: 02/02/17 01:13 Dose: 999 mls/hr Sodium Chloride (Normal Saline) 1,000 mls @ 250 mls/hr IV ASDIRECTED [facility] Last Admin: 02/02/17 21:48 Dose: 125 mls/hr Magnesium Sulfate 2 gm/ Premix 50 mls @ 25 mls/hr IV ONETIME ONE Stop: 02/02/17 11:34 Last Admin: 02/02/17 10:14 Dose: 25 mls/hr Magnesium Sulfate 2 gm/ Premix 50 mls @ 25 mls/hr IV ONETIME ONE Stop: 02/02/17 13:59 Last Admin: 02/02/17 12:23 Dose: Not Given Norepinephrine Bitartrate 4 mg (/ Dextrose/Water) 250 mls @ 7.5 mls/hr IV TITRATE [facility]; 2 MCG/MIN PRN Reason: Protocol Last Titration: 02/02/17 19:30 Dose: 0 mcg/min, 0 mls/hr Sodium Chloride (Normal Saline) 1,000 mls @ 125 mls/hr IV ASDIRECTED [facility] Last Admin: 02/04/17 05:23 Dose: 125 mls/hr Vancomycin HCl 1 gm/ Sodium (Chloride) 250 mls @ 250 mls/hr IV Q8H [facility] Last Admin: 02/05/17 03:20 Dose: 250 mls/hr Magnesium Sulfate 2 gm/ Premix 50 mls @ 25 mls/hr IV ONETIME ONE Stop: 02/04/17 10:59 Last Admin: 02/04/17 10:11 Dose: 25 mls/hr Magnesium Sulfate 2 gm/ Premix 50 mls @ 25 mls/hr IV ONETIME ONE Stop: 02/05/17 09:59 Last Admin: 02/05/17 09:23 Dose: 25 mls/hr Ketorolac Tromethamine (Toradol) 30 mg IVPUSH Q6H PRN PRN Reason: Pain Lorazepam (Ativan) 1 mg IV Q6H PRN PRN Reason: Anxiety Last Admin: 02/02/17 18:11 Dose: 1 mg Meperidine HCl (Demerol) 50 mg IVPUSH Q6H PRN PRN Reason: Pain Last Admin: 02/03/17 09:08 Dose: 50 mg Mirtazapine (Remeron) 30 mg PO ONETIME ONE Stop: 02/04/17 10:31 Last Admin: 02/04/17 10:28 Dose: 30 mg Nicotine (Habitrol) 21 mg TRDERM ONETIME ONE Stop: 02/01/17 21:59 Last Admin: 02/01/17 22:25 Dose: 21 mg Quetiapine Fumarate (Seroquel) 25 mg PO ONETIME ONE Stop: 02/02/17 12:42 Last Admin: 02/02/17 12:55 Dose: 25 mg Quetiapine Fumarate (Seroquel) 25 mg PO BID [facility] Saccharomyces Boulardii (Florastor) 250 mg PO TID [facility] Last Admin: 02/03/17 08:56 Dose: 250 mg Sumatriptan Succinate (Imitrex) 50 mg PO Q4HR PRN PRN Reason: Headache Last Admin: 02/02/17 01:20 Dose: 50 mg Sumatriptan Succinate (Imitrex) 50 mg PO Q2H PRN PRN Reason: Headache Last Admin: 02/02/17 05:11 Dose: 50 mg Temazepam (Restoril) 30 mg PO BEDTIME PRN PRN Reason: Sleep Last Admin: 02/02/17 20:37 Dose: 30 mg Vancomycin HCl (Pharmacy To Dose - Vancomycin) 1 dose .XX ASDIRECTED PRN PRN Reason: rx to dose - Exam Quality Assessment: Reports: DVT prophylaxis General: Reports: alert, oriented, cooperative, no acute distress HEENT: Reports: Pupils equal, Pupils reactive, EOMI, Mucous membr. moist/pink Neck: Reports: supple Lungs: Reports: Clear to auscultation, Normal respiratory effort Cardiovascular: Reports: Regular Rate, Regular Rhythm, No Murmurs Abdomen: Reports: bowel sounds present, soft, no tenderness, no distension (Male) Exam: Deferred Rectal (Males) Exam: Deferred Back Exam: Reports: normal inspection Extremities: Reports: no edema Skin: Reports: warm, dry, intact Neurological: Reports: no new focal deficit Psy/Mental Status: Reports: alert, normal affect, normal mood *Q Meaningful Use (DIS) - VTE *Q VTE Criteria *Q: - Stroke *Q Stroke Criteria *Q: - AMI *Q AMI Criteria *Q:
[2017-02-07 10:35] VITALS: BP 105/61
== END 2017-02-07 10:32 | disposition home or self-care (01) | DRG 720 ==
LOC: JD.ICU 19:44 → JD.MS 02-03 20:31
PROVIDERS: ADMIT Internal Medicine; ATTEND Internal Medicine
DX: A41.9 Sepsis, unspecified organism (principal); I95.9 Hypotension, unspecified; F11.20 Opioid dependence, uncomplicated; F32.9 Major depressive disorder, single episode, unspecified; F41.9 Anxiety disorder, unspecified; F17.200 Nicotine dependence, unspecified, uncomplicated; R00.0 Tachycardia, unspecified; E87.2 Acidosis; R11.2 Nausea with vomiting, unspecified; R19.7 Diarrhea, unspecified; D50.9 Iron deficiency anemia, unspecified; G47.00 Insomnia, unspecified; F19.90 Other psychoactive substance use, unspecified, uncomplicated
CPT/HCPCS: 36415; 80048; 80074; 80202; 80306; 80349; 81001; 83605; 83735; 85025; 85652; 86140; 87040; 87086; 87449; 87641; 93005; A9270; A9270-GY; G0480; J1200; J1650; J1956; J2060; J2175; J2543; J3370; J3475; J3490; J7030; J7040; J7050; J7060